=== PATIENT | female | born 1975 | race Caucasian/White ===

== ENCOUNTER 2019-08-08 18:22 | Emergency (ER) | payer SELFPAY ==
--- NOTE | 2019-08-08 18:34 | XR_ITS ---
WS: [id number] XR knee LT 3V* [id number] REASON FOR EXAM: injury FINDINGS: Degenerate changes along the medial meniscal space are seen now this is accentuated since A ugust 2015. The patella tibial space was normal. Patella femoral articulations normal. There is no fracture seen in the knee. XR/XR knee LT 3V* [id number] IMPRESSION: Early degenerate changes of the medial meniscal space.
[2019-08-08 18:54] VITALS: BP 135/95; PULSE 92; RESP 16; TEMP 37.2; O2SAT 99; BMI 25.6
--- NOTE | 2019-08-08 20:09 | ED_ITS ---
HPI - Extremity Problem General: Chief complaint: Extremity Injury, Lower Stated complaint: l knee pain Time Seen by Provider: 08/08/19 19:54 Source: patient Mode of arrival: ambulatory Limitations: no limitations History of Present Illness: HPI Narrative: Patient is a 43-year-old female who presents to ED today with complaints of left knee pain x yesterday. Patient states she has a history of rheumatoid arthritis and wonders if she could be having a flare. She also states she was cleaning her house and playing with her grandchild yesterday and may have accidentally twisted it. Patient reports previous tibial fracture years ago. MD Complaint: joint paint Onset (ago): day(s) Pain Consistency: constant Location: left Relieving factors: immobilization Exacerbating factors: range of motion, weight bearing and walking Associated symptoms: Reports no associated symptoms Review of Systems Musc: Reports: joint pain Neuro: Denies: numbness in extremities, weakness in extremities or changes in sensation PFSH ED PFSH: Social History Smoking and tobacco status: current every day smoker Physical Exam Const: COMMON NORMALS: no apparent distress, average body habitus, oriented x3, no limitations, healthy appearing, alert and well nourished Extremity: OTHER: pain throughout L knee; no obvious swelling noted; no effusion; no redness/warmth Neuro: COMMON NORMALS: oriented x3 SENSORIUM/ORIENTATION: Yes alert Course Vital Signs: Vital signs: Vital Signs Temperature 98.9 F 08/08/19 18:54 Pulse Rate 70 08/08/19 20:35 Respiratory Rate 16 08/08/19 18:54 Blood Pressure 135/95 08/08/19 18:54 Pulse Oximetry 99 08/08/19 18:54 MDM - Extremity (Nontraumatic) Imaging Data^: L knee XR: My impression: no acute fxs/dislocations; linear lucently through proximal tibia but this was present on previous and most likely represents her old fracture Discharge Plan Discharge Patient Disposition: Home, Self-Care Clinical Impression: Acute pain of left knee Condition: Stable Prescriptions: New diclofenac sodium 50 mg tablet,delayed release (DR/EC) 50 mg PO Q12H PRN (Reason: pain) Qty: 20 RF: 0 No Action Prilosec OTC 20 mg Tablet,Delayed Release (Dr/Ec) 20 mg PO DAILY RF: 0 Discharge Orders: Discharge Order (Routine); Ordered 08/08/19 Ordered By: Marcela Batista Referrals: Karina Burgess MD [Primary Care Provider] - Discharge Activity: Use walker/crutches as instructed Patient Instructions: RICE Therapy (ED) Activity Restrictions/Additional Instructions: Follow up with primary care in 1-2 weeks for continued pain. Discharge Date/Time: 08/08/19 20:44 Coding Level of Care Code ED Superintendent [employer] for Tone Da Silva
[2019-08-08] MEDS: ondansetron 2 mg/ML SDV 2 mL 4 MG IM (20:20)
[2019-08-08] MEDS: ketorolac 60 mg/2 mL INJ IM (20:21)
--- NOTE | 2019-08-08 20:24 | PC.NURSE ---
Wrapped left knee with [place] bandage.
[2019-08-08 20:35] VITALS: PULSE 70
== END 2019-08-08 20:44 | disposition home or self-care (01) ==
PROVIDERS: Emergency Provider Physician Assistant; PCP Family Medicine
DX: M25.562 Pain in left knee (principal); F17.210 Nicotine dependence, cigarettes, uncomplicated; M06.9 Rheumatoid arthritis, unspecified; M23.303 Other meniscus derangements, unspecified medial meniscus, right knee; W50.2XXA Accidental twist by another person, initial encounter; Y93.83 Activity, rough housing and horseplay; Y92.009 Unspecified place in unspecified non-institutional (private) residence as the place of occurrence of the external cause
CPT/HCPCS: 12345; 73562; 96372; 99281; 99283; E0114; J1885; J2405

== ENCOUNTER 2019-10-18 13:21 | Emergency (ER) | payer MEDICAID, SELFPAY ==
[2019-10-18] VITALS (9 sets, daily range): BP systolic 104–142; BP diastolic 64–93; PULSE 67–87; RESP 13–20; TEMP 36.6; O2SAT 97; BMI 25.6
--- NOTE | 2019-10-18 14:02 | ECG_ITS ---
Measurements Intervals Trilla Rate: 86 P: 61 [place]: 152 QRS: 52 QRSD: 85 T: 15 QT: 381 QTc: 456 SINUS RHYTHM NONSPECIFIC T-WAVE ABNORMALITY Compared to ECG 01/20/2019 20:52:31 No significant changes Electronically Signed On 10-19-2019 13:00:40 CDT by Thanh Zavala M.D. [email or web address]
[2019-10-18 14:36] LABS: Basophils % 0.8 %; Eosinophils # 0.2 10^3/uL (0.0-0.8); Hematocrit 42.6 % (37.0-47.0); Hemoglobin 14.1 g/dL (11.5-15.3); Lymphocytes # 1.9 10^3/uL (0.8-4.8); Mean Corpuscular HGB Conc 33.1 g/dL (30.0-36.0); Mean Corpuscular Hemoglobin 30.9 pg (28.0-34.0); Mean Corpuscular Volume 93.4 fL (81-99); Mean Platelet Volume 10.7 fL (7.4-10.4); Monocytes # 0.3 10^3/uL (0.2-0.9); Monocytes % 6.8 %; Neutrophils # 2.5 10^3/uL (1.8-7.7); Neutrophils % 50.2 %; Nucleated Red Blood Cells % 0 %; Platelet Count 134 10^3/cmm (130-400); Red Blood Count 4.56 10^6/uL (4.1-5.3); Red Cell Distribution Width 12.6 % (12.1-15.1)
--- NOTE | 2019-10-18 14:43 | ED_ITS ---
HPI - Chest Pain General: Chief Complaint: Chest Pain Stated Complaint: cp, jaw pain Time Seen by Provider: 10/18/19 14:39 Source: patient and RN notes reviewed History of Present Illness: HPI narrative: 44-year-old female with left-sided chest pain since last night that radiates to her left jaw states it woke her from sleep. It is been there most of the day nothing in particular makes it better or worse that she is noticed. She tells me that she has been diagnosed in the past with chest wall pain but she is worried because this seems to be lasting longer than she remembers the last episode. No known history of heart disease but she does have high cholesterol and smokes and has a family history of heart disease. She also has GERD and takes omeprazole daily. Denies any shortness of breath nausea vomiting or associated symptoms. Pain is 7-1/2 5 of 10 and feels like pressure or somebody putting a heavy weight on her chest Associated symptoms: Deny abdominal pain, dyspnea, fever(s), nausea or vomiting Review of Systems General: Reports: 10 or more systems reviewed and unremarkable except in HPI and below Const: Denies: fever(s) or chills Eyes: Denies: change in vision ENMT: Denies: throat pain Card: Reports: chest pain Resp: Denies: dyspnea GI: Denies: abdominal pain, nausea, vomiting or change in bowel habits : Denies: difficulty voiding Musc: Denies: muscle weakness Skin/Breast: Denies: rash Neuro: Denies: headache(s) Psych: Denies: hopelessness or suicidal ideation Endo: Denies: polyuria Cornelius/Lymph: Denies: easy bruising or easy bleeding All/Imm: Denies: urticaria PFSH ED PFSH: Social History Smoking and tobacco status: current every day smoker Physical Exam Const: COMMON NORMALS: no acute distress, patient oriented x3, alert and well nourished HENMT: COMMON NORMALS: normocephalic and Normal external nose present HEAD & SCALP: normocephalic NOSE: Normal external nose present MOUTH: no trismus Eye: COMMON NORMALS: EOMs intact bilaterally and conjunctivae normal CONJUNCTIVA: Yes conjunctivae normal Neck/C-Spine: COMMON NORMALS: full ROM, no lymphadenopathy and supple CERVICAL SPINE: Yes cervical ROM normal Lymph: LYMPHATIC: no lymphadenopathy noted Chest: COMMONS NORMALS: normal inspection of the chest OTHER: Chest pain reproducible with palpation Resp: COMMON NORMALS: normal respiratory effort, No retractions, No use of accessory muscles and clear to auscultation bilaterally EFFORT & INSPECTION: Yes able to speak in complete sentences AUSCULTATION: clear to auscultation bilaterally Cardio: COMMON NORMALS: regular rate and regular rhythm RATE: regular rate RHYTHM: regular rhythm GI: COMMON NORMALS: Normal to inspection, nondistended, normoactive bowel sounds present, Soft to palpation, non-tender and no masses INSPECTION: Yes normal to inspection AUSCULTATION: Yes normoactive bowel sounds PALPATION: Yes Soft to palpation, No Guarding due to palpation present (GI) and No Rigid due to palpation Back/Pelvis: OTHER: Normal range of motion Extremity: GENERAL: Yes normal exam except as noted Neuro: COMMON NORMALS: patient oriented x3 and CN's II-XII intact bilaterally SENSORIUM/ORIENTATION: Yes alert SPEECH: speech normal Psych: COMMON NORMALS: mental status grossly normal Skin: COMMON NORMALS: no rashes or lesions noted GENERAL SKIN EXAM: no rashes or lesions noted Course Vital Signs: Vital signs: Vital Signs Temperature 97.9 F 10/18/19 13:41 Pulse Rate 71 10/18/19 17:30 Respiratory Rate 13 10/18/19 17:30 Blood Pressure 116/65 10/18/19 17:30 Pulse Oximetry 97 10/18/19 13:41 MDM - Chest Pain MDM Narrative: Medical decision making narrative: Chest pain is reproducible on palpation. First troponin was 6-second 2-hour troponin was also 6. Explained to patient that this is likely chest wall pain we talked about doing things that could help with decreasing inflammation she is taking tumor Gummies and exploring dietary options since she also has rheumatoid arthritis to help with this. She was given a dose of Toradol here IV but it did not help we will give her a dose of Vicodin and a prescription for 3. I explained that this is not the long-term solution and she will need to follow-up and explore other options that are not related to opioids Lab Data: Attestation: I reviewed the patient's lab results. Labs: Lab Results 10/18/19 10/18/19 10/18/19 Range/Units 14:26 14:26 14:26 WBC 5.0 (4.0-10.0) 10^3/ uL RBC 4.56 (4.1-5.3) 10^6/u L Hgb 14.1 (11.5-15.3) g/dL Hct 42.6 (37.0-47.0) % MCV 93.4 (81-99) fL MCH 30.9 (28.0-34.0) pg MCHC 33.1 (30.0-36.0) g/dL RDW 12.6 (12.1-15.1) % Plt Count 134 (130-400) 10^3/c mm MPV 10.7 H (7.4-10.4) fL Neut % (Auto) 50.2 % Lymph % (Auto) 38.0 % Wagoner % (Auto) 6.8 % Eos % (Auto) 4.0 % Baso % (Auto) 0.8 % Neut # (Auto) 2.5 (1.8-7.7) 10^3/u L Lymph # (Auto) 1.9 (0.8-4.8) 10^3/u L Wagoner # (Auto) 0.3 (0.2-0.9) 10^3/u L Eos # (Auto) 0.2 (0.0-0.8) 10^3/u L Baso # (Auto) 0.0 (0.0-0.1) 10^3/u L Nucleated RBC % (a uto) 0 % Nucleated RBCs # 0.0 /100WBC Sodium 135 L (136-145) mmol/L Potassium 4.6 (3.5-5.1) mmol/L Chloride 98 (98-107) mmol/L Carbon Dioxide 29 (22-29) mmol/L Anion Gap 12.6 (5-19) BUN 8 (6-20) mg/dL Creatinine 0.6 (0.5-0.9) mg/dL GFR Calculation 107.6 (90-130) mL/min Glucose 99 (65-115) mg/dL Calculated Osmolal ity 276 L (285-295) mOsm/k g Calcium 9.0 (8.5-10.5) mg/dL Total Bilirubin 0.3 (0.15-1.2) mg/dL AST 54 H (0-32) U/L ALT 47 H (0-33) U/L Alkaline Phosphata se 81 (35-105) IU/L Troponin T Baselin e 6 (0-10) ng/mL Troponin T 120 Min [place] (0-10) ng/mL Total Protein 7.0 (6.6-8.7) g/dL Albumin 4.2 (3.5-5.2) g/dL Globulin 2.8 (1.3-4.6) g/dL 10/18/19 Range/Units 17:08 WBC (4.0-10.0) 10^3/ uL RBC (4.1-5.3) 10^6/u L Hgb (11.5-15.3) g/dL Hct (37.0-47.0) % MCV (81-99) fL MCH (28.0-34.0) pg MCHC (30.0-36.0) g/dL RDW (12.1-15.1) % Plt Count (130-400) 10^3/c mm MPV (7.4-10.4) fL Neut % (Auto) % Lymph % (Auto) % Wagoner % (Auto) % Eos % (Auto) % Baso % (Auto) % Neut # (Auto) (1.8-7.7) 10^3/u L Lymph # (Auto) (0.8-4.8) 10^3/u L Wagoner # (Auto) (0.2-0.9) 10^3/u L Eos # (Auto) (0.0-0.8) 10^3/u L Baso # (Auto) (0.0-0.1) 10^3/u L Nucleated RBC % (a uto) % Nucleated RBCs # /100WBC Sodium (136-145) mmol/L Potassium (3.5-5.1) mmol/L Chloride (98-107) mmol/L Carbon Dioxide (22-29) mmol/L Anion Gap (5-19) BUN (6-20) mg/dL Creatinine (0.5-0.9) mg/dL GFR Calculation (90-130) mL/min Glucose (65-115) mg/dL Calculated Osmolal ity (285-295) mOsm/k g Calcium (8.5-10.5) mg/dL Total Bilirubin (0.15-1.2) mg/dL AST (0-32) U/L ALT (0-33) U/L Alkaline Phosphata se (35-105) IU/L Troponin T Baselin e (0-10) ng/mL Troponin T 120 Min [place] 6.00 (0-10) ng/mL Total Protein (6.6-8.7) g/dL Albumin (3.5-5.2) g/dL Globulin (1.3-4.6) g/dL Imaging Data^: CXR: Radiologist's impression: No acute disease EKG Data^: EKG 1: Attestation: I personally reviewed and interpreted this EKG as follows: EKG interpretation date: 10/18/19 EKG interpretation time: 14:39 Prior EKG tracings: available for review Interpretation: Normal sinus rhythm rate 86 poor R wave progression nonspecific ST changes no acute ST elevation. Nonspecific ST changes are unchanged from 01/20/2019 EKG that I reviewed Discharge Plan Discharge Patient Disposition: Home, Self-Care Clinical Impression: Chest pain Qualifiers: Chest pain type: unspecified Qualified Code(s): R07.9 - Chest pain, unspecified Condition: Stable Prescriptions: New Sadler 7.5-325 mg tablet 1 tab PO TID Qty: 3 RF: 0 No Action omeprazole magnesium [Prilosec OTC] 20 mg Tablet,Delayed Release (Dr/Ec) 20 mg PO DAILY RF: 0 Multiple Vitamins Tablet 1 tab PO DAILY RF: 0 Tylenol Extra Strength 500 mg Tablet 2,000 mg PO PRN RF: 0 Suboxone 1 tab PO PRN RF: 0 Discharge Diet: Usual diet Discharge Activity: Resume usual activity Patient Instructions: Chest Pain - Chest Wall, Chest Pain (ED) Activity Restrictions/Additional Instructions: Tylenol and/or Motrin for pain as directed [id number]. Return to the ER if worse. You need to follow-up with your primary care doctor. Coding Level of Care Code ED Buildings Painter for Chg Fwd Exam Comprehensive
--- NOTE | 2019-10-18 14:44 | XR_ITS ---
WS: [id number] PORTABLE CHEST HISTORY: cp COMPARISON: 01/20/2019 Lungs are clear and well expanded. No pleural effusion or pneumothorax. Cardiac size: Normal. Mediastinum/Aorta: Normal mediastinum. No osseous abnormality seen. XR/XR chest 1V portable [id number] IMPRESSION: Unremarkable portable chest.
[2019-10-18 15:03] LABS: Alanine Aminotransferase 47 U/L (0-33); Albumin Level 4.2 g/dL (3.5-5.2); Alkaline Phosphatase 81 IU/L (35-105); Anion Gap 12.6 (5-19); Aspartate Amino Transferase 54 U/L (0-32); Blood Urea Nitrogen 8 mg/dL (6-20); Carbon Dioxide 29 mmol/L (22-29); Chloride 98 mmol/L (98-107); Globulin 2.8 g/dL (1.3-4.6); Glomerular Filtration Rate 107.6 mL/min (90-130); Glucose 99 mg/dL (65-115); Osmolality Calculated 276 mOsm/kg (285-295); Potassium 4.6 mmol/L (3.5-5.1); Sodium 135 mmol/L (136-145); Total Bilirubin 0.3 mg/dL (0.15-1.2)
[2019-10-18 15:04] LABS: Troponin(5th) Baseline 6 ng/mL (0-10)
[2019-10-18] MEDS: aspirin 81 mg Chew Tablet 324 MG PO (15:25)
[2019-10-18] MEDS: famotidine 20 mg/2 mL INJ IVP (15:26)
[2019-10-18] MEDS: ketorolac 30 mg/mL INJ 15 MG IVP (16:15)
[2019-10-18 17:38] LABS: Troponin 5 2HR Delta 0 ABS# (0-10)
[2019-10-18] MEDS: LORazepam 1 mg Tablet 0.5 MG PO (17:42)
[2019-10-18] MEDS: HYDROcodone-acetaminophen 7.5-325 mg Tablet 1 TAB PO (17:52)
== END 2019-10-18 18:04 | disposition home or self-care (01) ==
PROVIDERS: Emergency Provider Emergency Medicine
DX: R07.9 Chest pain, unspecified (principal); F17.210 Nicotine dependence, cigarettes, uncomplicated
CPT/HCPCS: 12345; 36415; 71045; 80053; 84484; 85025; 93005; 96374; 96375; 99283; 99284; J1885; J3490

== ENCOUNTER → 2020-03-06 11:55 | Outpatient (BNVA) | payer MEDICAID, SELFPAY | PROVIDERS: Visit Provider Internal Medicine | DX: E11.9 Type 2 diabetes mellitus without complications (principal); K22.70 Barrett's esophagus without dysplasia; R76.8 Other specified abnormal immunological findings in serum; B18.2 Chronic viral hepatitis C; Z86.19 Personal history of other infectious and parasitic diseases | CPT/HCPCS: 80053; 85025; 87522 ==

== ENCOUNTER → 2020-03-10 15:36 | Outpatient (BNVA) | payer MEDICAID, SELFPAY | PROVIDERS: Visit Provider Internal Medicine | DX: Z11.59 Encounter for screening for other viral diseases (principal) | CPT/HCPCS: 87635 ==

== ENCOUNTER 2020-03-14 09:20 | Day surgery (SDC) | payer MEDICAID, SELFPAY ==
[2020-03-11 12:09] VITALS: BMI 28.3
--- NOTE | 2020-03-14 10:01 | P.ANESASSM_ITS ---
Pre-Anesthetic Assessment Pre-Anesthetic Assessment: Height/Weight: Height 1.57 m Weight 70.307 kg Preop Diagnosis: BE Proposed Procedure: Operation Date: 03/14/20 10:30 Proposed Procedures p EGD 47406 K22.70(Not Applicable) - Rohan Gates MD Was Beta Jamari taken within 24 hours: N/A Last intake: Intake Last Liquid Date 03/13/20 Last Liquid Time 23:30 Last Solid Date 03/13/20 Last Solid Time 23:30 Social: Social History: Alcohol and Tobacco Exam: Pre-Anes Outpt Exam: alert, oriented x 3, clear to auscultation bilaterally and regular rate & rhythm Airway: Submandibular: WNL Cervical ROM: WNL MP: 2 Dentition: Full Pulmonary: Comments: Chest Pain of undetermined etiology CV/HEM: CV/HEM: None reported : : None reported Hepatic: Hepatic: None reported GI: GI: GERD Metabolic: Metabolic: None reported Musc/skel: Musc/skel: None reported Neuropsych: Neuropsych: Anxiety and Depression Comments: Poly Substance A buse Anesthetic Plan: ASA status: 3 Anesthesia: MAC PFSH Anesthesia PFSH: Medical History (Updated 03/06/20 @ 11:44 by Rohan Gates MD) Atypical chest pain Barretts esophagus Benign essential hypertension with target blood pressure below 140/90 Dyslipidemia (high LDL; low HDL) IV drug user Narcotic addiction Rhabdomyolysis Rheumatoid arthritis Surgical History Hx of appendectomy Hx of section Hx of cholecystectomy Hx of neck surgery Social History (Updated 03/06/20 @ 11:01 by DERRICK Cottrell) Smoking and tobacco status: current every day smoker Alcohol intake: current Alcohol intake frequency: holidays/special occasions only Alcohol type: beer Adopted: No Marital status: service: No History of recent travel: No Female Reproductive History: Date of last menstrual period: 02/19/20 Data Anesthesia Cardiac Studies: No Data to Display
[2020-03-14 10:02] VITALS: BP 155/90; PULSE 76; RESP 18; TEMP 36.2; O2SAT 97
[2020-03-14] MEDS: sodium chloride 0.9% 1,000 ML 30 ML IV (10:02)
[2020-03-14 10:10] LABS: OR HCG Qualitative Urine Negative (Negative)
--- NOTE | 2020-03-14 11:08 | W.PM.OPSUD ---
Surgery/Procedure H&P Update DATE OF PROCEDURE: March 14, 2020 DATE H&P PERFORMED: 03/06/20 PREOP DIAGNOSIS: BE PLANNED PROCEDURE: Operation Date: 03/14/20 10:30 Proposed Procedures p EGD 89152 K22.70(Not Applicable) - Rohan Gates MD
[2020-03-14 11:27] VITALS: BP 147/97; PULSE 62; RESP 18; TEMP 36.1; O2SAT 94
--- NOTE | 2020-03-14 11:32 | ANE.PACU2 ---
Inpatient post-anesthesia follow up: Airway intact: Yes Vital signs: Temperature 97.2 F Pulse Rate 76 Respiratory Rate 18 Blood Pressure 155/90 Pulse Oximetry 97 Oxygen Delivery Me thod Room Air Oxygen Flow Rate Fraction of Inspir ed Oxygen Hydration adequate: Yes Nausea and vomiting: No Pain level: 1
[2020-03-14 11:43] VITALS: BP 136/78; PULSE 75; RESP 18; O2SAT 98
== END 2020-03-14 11:55 | disposition home or self-care (01) ==
PROVIDERS: Anesthesiology; Visit Provider Internal Medicine
PROC: 0DJ08ZZ Inspection of Upper Intestinal Tract, Via Natural or Artificial Opening Endoscopic (ICD-10-PCS; CPT 43235; principal; 2020-03-14 10:30)
DX: K22.70 Barrett's esophagus without dysplasia (principal); Z86.19 Personal history of other infectious and parasitic diseases; E78.5 Hyperlipidemia, unspecified; M06.9 Rheumatoid arthritis, unspecified; F17.210 Nicotine dependence, cigarettes, uncomplicated; I10 Essential (primary) hypertension; K21.9 Gastro-esophageal reflux disease without esophagitis
CPT/HCPCS: 12345; 43239; 84703; 88305; J2704; J7030

== ENCOUNTER → 2020-04-15 14:38 | Outpatient (BNVA) | payer MEDICAID, SELFPAY | PROVIDERS: Visit Provider Psychiatry & Neurology Psychiatry | DX: F41.1 Generalized anxiety disorder (principal); F33.2 Major depressive disorder, recurrent severe without psychotic features; F43.12 Post-traumatic stress disorder, chronic; F17.210 Nicotine dependence, cigarettes, uncomplicated; F11.20 Opioid dependence, uncomplicated | CPT/HCPCS: 99204 ==

== ENCOUNTER 2020-09-01 17:16 | Outpatient (CLI) | payer MEDICAID, SELFPAY ==
--- NOTE | 2020-09-01 17:26 | MR_ITS ---
WS: [id number] MRI RIGHT KNEE HISTORY: PAIN IN RIGHT KNEE COMPARISON: None available. Anterior cruciate ligament: Intact. Posterior cruciate ligament: Intact. Medial collateral ligament: Intact with slight displacement due to partially extruded meniscus. No te ar. Posterior lateral corner structures: Intact. Medial menisci: Increased signal towards the meniscal root in the peripheral third of the meniscus. C onsistent with a minimally complex tear. Anterior horn is normal. Lateral meniscus: Intact. Normal signal, size and shape. Extensor mechanism: Distal quadriceps tendon and patellar tendons are intact. Fluid and soft tissue: Moderate to large suprapatellar joint effusion. No Landeros's cyst. Osseous and articular structures: Patellofemoral compartment: Normal. Medial compartment: Mild narrowing of the medial compartment. There is moderate fissuring and superfi cial cartilage in the medial and lateral compartments. Slightly greater defects in the cartilage towa rds the intercondylar notch. Greatest defects involving the femoral condyle. Subchondral cyst in the posterior tibial plateau near the attachment of the PCL measures 10 mm. Small amount of edema within the medial tibial plateau and additional area of osteonecrosis in the more anterior tibial plateau. Lateral compartment: Mild fissuring of the cartilage. MR/MR knee RT wo con* [id number] IMPRESSION: 1. Moderate internal derangement involving the medial compartment. There is femi int space narrowing with moderate chondromalacia greatest involving the femoral condyle towards the intercondylar notch. 2. Subchondral cystic changes in the tibial plateau of the medial compartment with an additional area of marrow edema and osteonecrosis involving the LEFT an terior medial tibial plateau. 3. Complex tear involving the medial meniscal root, peripheral third of the me niscus. 4. Mild lateral compartment osteoarthritis. 5. Moderate-sized suprapatellar joint effusion.
== END 2020-09-01 17:17 | disposition home or self-care (01) ==
LOC: RADSHAW 17:22
PROVIDERS: Visit Provider Nurse Practitioner Family
DX: M23.91 Unspecified internal derangement of right knee (principal); S83.231A Complex tear of medial meniscus, current injury, right knee, initial encounter; M17.11 Unilateral primary osteoarthritis, right knee; M25.461 Effusion, right knee; X58.XXXA Exposure to other specified factors, initial encounter
CPT/HCPCS: 73721

== ENCOUNTER → 2020-09-10 10:30 | Outpatient (BNVA) | payer MEDICAID, SELFPAY | PROVIDERS: PCP Nurse Practitioner Family; Referring Provider Nurse Practitioner Family; Visit Provider Orthopaedic Surgery | DX: M25.561 Pain in right knee (principal) | CPT/HCPCS: 73560; 73565 ==

== ENCOUNTER → 2020-09-19 15:06 | Outpatient (BNVA) | payer MEDICAID, SELFPAY | PROVIDERS: PCP Nurse Practitioner Family; Visit Provider Orthopaedic Surgery | DX: Z01.812 Encounter for preprocedural laboratory examination (principal); Z20.822 Contact with and (suspected) exposure to COVID-19 | CPT/HCPCS: 87635 ==

== ENCOUNTER 2020-09-25 11:49 | Day surgery (SDC) | payer MEDICAID, SELFPAY ==
[2020-09-24 17:00] VITALS: BMI 28.3
[2020-09-25] VITALS (8 sets, daily range): BP systolic 131–168; BP diastolic 87–108; PULSE 58–71; RESP 12–21; TEMP 36.1–37.1; O2SAT 95–100
--- NOTE | 2020-09-25 13:07 | ANES.PREANE2 ---
Pre-Anesthetic Assessment Pre-Anesthetic Assessment: Height/Weight: Height 1.57 m Weight 70.307 kg Temp Pulse Resp BP Pulse Ox 98.7 F 71 18 144/92 96 09/25/20 12:11 09/25/20 12:11 09/25/20 12:11 09/25/20 12:11 09/25/20 12:11 Preop Diagnosis: Knee Medial meniscal tear, osteoarthritis Proposed Procedure: Operation Date: 09/25/20 12:15 Proposed Procedures p Knee Arthroscopy with Medial Mensicectomy 92577 M23.303(Right) - Eliseo Tran MD s Debridement Lower Extremity(Right) - Eliseo Tran MD Was Beta Jamari taken within 24 hours: N/A Was Clonidine taken within 24 hours: N/A Last intake: Intake Last Liquid Date 09/24/20 Last Liquid Time 06:00 Last Solid Date 09/23/20 Last Solid Time 23:10 Social: Social History: Tobacco and No alcohol Exam: Pre-Anes Outpt Exam: alert, oriented x 3 and regular rate & rhythm Airway: Submandibular: WNL Cervical ROM: WNL MP: 2 Dentition: False Pulmonary: Pulmonary: COPD GI: GI: GERD Neuropsych: Neuropsych: Anxiety and Depression Anesthetic Plan: ASA status: 3 Anesthesia: General Risk of > 500 ml blood loss (7ml/kg in children): No PFSH Anesthesia PFSH: Medical History Atypical chest pain Barretts esophagus Benign essential hypertension with target blood pressure below 140/90 Dyslipidemia (high LDL; low HDL) IV drug user Narcotic addiction Rhabdomyolysis Rheumatoid arthritis Surgical History Hx of appendectomy Hx of section Hx of cholecystectomy Hx of neck surgery Social History Smoking and tobacco status: current every day smoker cigarettes Packs smoked per day: 0.5 Years cigarettes smoked: 27 Quit status (tobacco): has tried quititng Number of times tried to quit tobacco: 1 Second hand smoke exposure: Yes Alcohol intake: current Alcohol intake frequency: holidays/special occasions only Alcohol type: beer Adopted: No Marital status: service: No History of recent travel: No Current gender identity: Female Female Reproductive History: Date of last menstrual period: 02/19/20 Data Anesthesia Cardiac Studies: No Data to Display
[2020-09-25] MEDS: midazolam 1 mg/mL INJ 2 mL 2 MG IVP (13:14)
[2020-09-25] MEDS: sodium chloride 0.9% 1,000 ML 30 ML IV (13:18)
[2020-09-25 14:35] LABS: OR HCG Qualitative Urine Negative (Negative)
--- NOTE | 2020-09-25 14:35 | W.PM.OPSUD ---
Surgery/Procedure H&P Update DATE OF PROCEDURE: September 25, 2020 DATE H&P PERFORMED: 09/09/20 H&P UPDATE INFORMATION: I have reviewed H&P completed within last 30 days, I have examined patient prior to procedure and No changes to prior documentation PREOP DIAGNOSIS: Knee Medial meniscal tear, osteoarthritis PLANNED PROCEDURE: Operation Date: 09/25/20 12:15 Proposed Procedures p Knee Arthroscopy with Medial Mensicectomy 19160 M23.303(Right) - Eliseo Tran MD s Debridement Lower Extremity(Right) - Eliseo Tran MD
[2020-09-25] MEDS: morphine 4 mg/mL SDV 1 mL 8 MG (15:20)
--- NOTE | 2020-09-25 15:35 | P.OP_ITS ---
Operative Report Date of procedure: September 25, 2020 Pre-op Diagnosis: Knee Medial meniscal tear, osteoarthritis Post-op diagnosis: same Post-op Diagnosis: Degenerative tear right medial meniscus Chondromalacia medial femoral condyle and trochlea Post-op Findings: As above Procedure Done: Arthroscopic partial right medial meniscectomy Chondroplasty medial femoral condyle and trochlea Pathology: none sent Surgeon: Eliseo Tran Anesthesia: General Estimated blood loss (mL): 10 Findings: The patient had complex degenerative tearing in the central 50% of her medial meniscus. She had thinning of the cartilage with fraying over the medial femoral condyle involving 50% of the thickness of the cartilage. She had central trochlear wear involving approximately 75% of her central trochlear cartilage. Her lateral compartment and patella seemed healthy. Her lateral meniscus was healthy. No pathology was seen in the central stabilizing ligaments Condition: stable Disposition: PACU Procedure: The patient was taken to the operating room given 2 g of Ancef. She was prepped and draped in the supine position. The knee was infiltrated with 30 cc of 0.5% Marcaine and 8 mg of morphine. A timeout was performed. The knee was entered through standard inferior medial and inferolateral portals. The karen gnostic portion of arthroscopy was performed. Initial attention was paid to the medial meniscus. Utilizing a basket this complex tearing the central 50% of the medial meniscus was debrided back. The rim was then stabilized with the werewolf probe leaving 50% of the remaining meniscus healthy and of reasonable quality. Thinning and fraying was identified over the medial femoral condyle. This was debrided back with incisor shaver and [employer] Nephew Werewolf probe to a stable base of proximally 50% of the medial femoral cartilage. The lateral compartment was inspected and found to be pristine. Final attention was focused on the patellofemoral joint. There is some generalized softening of the patella but no unstable flaps or fissures. Centrally about the trochlea unstable flaps were debrided back with the werewolf shaver. No exposed subchondral bone was identified but substantial thickness of the cartilage loss noted. The knee was irrigated with saline. Portals were closed with 3-0 Prolene. Sterile dressings were applied. The patient was extubated taken recovery in stable condition.
[2020-09-25] MEDS: fentaNYL 50 mcg/mL INJ 2mL IVP ×2 (15:40→15:45)
[2020-09-25] MEDS: HYDROmorphone 1 mg/mL INJ 1 mL 0.5 MG IVP ×2 (15:47→15:55)
[2020-09-25] MEDS: oxyCODONE 5 mg IR Tab/Cap PO (16:30)
--- NOTE | 2020-09-25 17:09 | ANE.PACU2 ---
Inpatient post-anesthesia follow up: Airway intact: Yes Vital signs: Temperature 97.7 F Pulse Rate 67 Respiratory Rate 18 Blood Pressure 131/89 Pulse Oximetry 95 Oxygen Delivery Me thod Room Air Oxygen Flow Rate 8 Fraction of Inspir ed Oxygen Hydration adequate: Yes Nausea and vomiting: No Pain level: 3 Mental status: Baseline
== END 2020-09-25 16:55 | disposition home or self-care (01) ==
PROVIDERS: Anesthesiology; PCP Nurse Practitioner Family; Visit Provider Orthopaedic Surgery
PROC: (CPT 29870; principal; 2020-09-25 12:05)
PROC: (CPT 29881; 2020-09-25 12:05)
DX: S83.241A Other tear of medial meniscus, current injury, right knee, initial encounter (principal); X58.XXXA Exposure to other specified factors, initial encounter; J44.9 Chronic obstructive pulmonary disease, unspecified; K21.9 Gastro-esophageal reflux disease without esophagitis; F41.9 Anxiety disorder, unspecified; F32.9 Major depressive disorder, single episode, unspecified; E78.5 Hyperlipidemia, unspecified; M06.9 Rheumatoid arthritis, unspecified; F17.210 Nicotine dependence, cigarettes, uncomplicated; Z79.82 Long term (current) use of aspirin
CPT/HCPCS: 29881; 81025; 84703; 96374; J0690; J1170; J2250; J2270; J2405; J2704; J3010; J3490; J7030

== ENCOUNTER → 2021-01-26 11:08 | Outpatient (BNVA) | payer MEDICAID, SELFPAY | PROVIDERS: Visit Provider Psychiatry & Neurology Psychiatry | DX: F43.12 Post-traumatic stress disorder, chronic (principal); F33.2 Major depressive disorder, recurrent severe without psychotic features; F41.1 Generalized anxiety disorder; F15.21 Other stimulant dependence, in remission; F11.20 Opioid dependence, uncomplicated; F17.200 Nicotine dependence, unspecified, uncomplicated | CPT/HCPCS: 99214 ==

== ENCOUNTER → 2021-10-09 09:49 | Outpatient (BNVA) | payer MEDICAID, SELFPAY | PROVIDERS: Visit Provider Orthopaedic Surgery | DX: M17.11 Unilateral primary osteoarthritis, right knee (principal); F17.210 Nicotine dependence, cigarettes, uncomplicated | CPT/HCPCS: 73560; 73565; 99213; 99214 ==

== ENCOUNTER 2021-11-16 10:03 | Observation (INO) | payer MEDICAID, SELFPAY ==
[2021-11-09 10:46] VITALS: BMI 27.4
--- NOTE | 2021-11-09 11:08 | P.ANESASSM_ITS ---
Pre-Anesthetic Assessment Height/Weight: Height 1.57 m Weight 68.039 kg Preop Diagnosis: Knee Medial meniscal tear, osteoarthritis Operation Date: 11/16/21 10:00 Proposed Procedures p RightTotal Knee Arthroplasty 77366/M17.11(Right) - Eliseo Tran MD Familial anesthetic complications: None Social Tobacco and No alcohol Airway Mallampati: Class III Dentition: false and other Pulmonary Chronic Obstructive Pulmonary Disease (inhalers) CV/HEM Stable Angina (atypical - anxiety) and Hypertension None reported Hepatic Hepatitis (C - in remission) GI Gastroesophageal Reflux Disease Metabolic Hyperlipidemia Musc/skel Lower Back Pain and Osteoarthritis/DJD Neuropsych Seizure (years ago) Anesthetic Plan ASA status: 3 Anesthesia: Regional (specify below) (spinal + adductor) Risk of > 500 ml blood loss (7ml/kg in children): No Medications/Allergies Home Medications Medication Instructions Recorded Confirmed Last Taken Type multivitamin (Multiple Vitamins) 1 tab PO DAILY 10/18/19 11/09/21 09/24/20 History nitroglycerin 0.4 mg sublingual 0.4 mg SUBLINGUAL Q5M PRN #30 tab 03/11/20 11/09/21 Unknown Rx tablet (Nitrostat) famotidine 20 mg tablet 20 mg PO BID 04/15/20 11/09/21 09/24/20 History omeprazole magnesium 20 mg 40 mg PO DAILY tab 04/15/20 11/09/21 09/24/20 History tablet,delayed release (Prilosec OTC) naproxen 500 mg tablet (Naprosyn) 500 mg PO BID #60 tab 10/21/20 11/09/21 Unknown Rx [facility] Knee Brace #1 ea 11/19/20 10/09/21 Unknown Rx aspirin 81 mg tablet,delayed 81 mg PO DAILY 04/17/21 11/09/21 Unknown History release (Adult Aspirin Regimen) ergocalciferol (vitamin D2) 1,250 1,250 mcg PO DAILY 04/17/21 11/09/21 Unknown History mcg (50,000 unit) capsule ipratropium 20 mcg-albuterol 100 1 puff INHALATION QID 04/17/21 11/09/21 Unknown History mcg/actuation mist for inhalation (Combivent Respimat) naloxone 4 mg/actuation nasal 4 mg INTRANASAL Q2M PRN 04/17/21 11/09/21 Unknown History spray (Narcan) buprenorphine 8 mg-naloxone 2 mg 1 tab SUBLINGUAL DAILY tab 10/09/21 11/09/21 Unknown History sublingual tablet clonazepam 1 mg tablet 0.5 mg PO BID tab 10/09/21 11/09/21 Unknown History gabapentin 100 mg capsule 100 mg PO TID 10/09/21 11/09/21 Unknown History fluoxetine 60 mg tablet 60 mg PO DAILY 11/09/21 11/09/21 Unknown History Allergies Allergy/AdvReac Type Severity Reaction Status Date / Time tramadol Allergy Severe ADR-Seizure Verified 10/09/21 09:52 metoclopramide [From Reglan] Allergy Intermediate ADR-Irritab Verified 10/09/21 09:52 le codeine Allergy Nausea Verified 10/09/21 09:52 propoxyphene [From Darvon] Allergy unknown Verified 10/09/21 09:52 [facility] Anesthesia Medical History Atypical chest pain Barretts esophagus Benign essential hypertension with target blood pressure below 140/90 Dyslipidemia (high LDL; low HDL) IV drug user Narcotic addiction Psychiatric care Rhabdomyolysis Rheumatoid arthritis Surgical History Hx of appendectomy Hx of section Hx of cholecystectomy Hx of neck surgery Social History Smoking and tobacco status: current every day smoker cigarettes Packs smoked per day: 0.5 Years cigarettes smoked: 27 Quit status (tobacco): has tried quititng Number of times tried to quit tobacco: 1 Second hand smoke exposure: Yes Alcohol intake: current Alcohol intake frequency: holidays/special occasions only Alcohol type: beer Adopted: No Marital status: service: No History of recent travel: No Current gender identity: Female Female Reproductive History Date of last menstrual period: 02/19/20 Data Anesthesia Cardiac Studies: No Data to Display
[2021-11-16] VITALS (24 sets, daily range): BP systolic 94–163; BP diastolic 59–85; PULSE 59–86; RESP 15–22; TEMP 36.3–37.2; O2SAT 94–99
[2021-11-16] MEDS: gabapentin 300 mg Capsule PO ×2 (06:33→17:39)
[2021-11-16] MEDS: CELEcoxib 200 mg Capsule 400 MG PO (06:33)
[2021-11-16] MEDS: acetaminophen 500 mg Tablet 1000 MG PO ×3 (06:34→23:19)
[2021-11-16] MEDS: oxyCODONE 20 mg ER (12 HR) Tablet PO (06:34)
[2021-11-16] MEDS: sodium chloride 0.9% 1,000 ML 30 ML IV (06:52)
--- NOTE | 2021-11-16 06:52 | P.ANESUD_ITS ---
Pre-Anesthetic Update Pre-Anesthetic Assessment: Date of Surgery/Procedure: 11/16/21 Preop Melissa gnosis: OsteoarthritisRight knee Proposed Procedure: Operation Date: 11/16/21 07:00 Proposed Procedures p RightTotal Knee Arthroplasty 67912/M17.11(Right) - Eliseo Tran MD Any changes to Pre-Anesthetic Assessment?: No Last Intake: Intake Last Liquid Date 11/15/21 Last Liquid Time 23:45 Last Solid Date 11/15/21 Last Solid Time 09:00 Vitals: Temperature 97.3 F L 11/16/21 06:08 Temperature Source Temporal Artery S can 11/16/21 06:08 Pulse Rate 72 11/16/21 06:08 Respiratory Rate 18 11/16/21 06:34 Respiratory Effort Non-Labored 11/16/21 06:34 Respiratory Depth Normal 11/16/21 06:34 Respiratory Patter n 11/16/21 06:34 Blood Pressure 163/81 11/16/21 06:08 Blood Pressure Juhi n 108 11/16/21 06:08 Pulse Oximetry 99 11/16/21 06:08 Oxygen Delivery Me thod 11/16/21 06:08 Exam: Pre-Anes Outpt Exam: alert, oriented x 3, clear to auscultation bilaterally and regular rate & rhythm Cardiac Studies: No Data to Display
--- NOTE | 2021-11-16 06:55 | P.HP_ITS ---
Same Day Surgery H&P Indication for Procedure/HPI DATE OF PROCEDURE: November 16, 2021 CHIEF COMPLAINT/INDICATIONFOR SURGICAL PROCEDURE: Osteoarthritis right knee here for right total knee arthroplasty PREOP DIAGNOSIS: OsteoarthritisRight knee PLANNED PROCEDURE: Operation Date: 11/16/21 07:00 Proposed Procedures p RightTotal Knee Arthroplasty 95129/M17.11(Right) - Eliseo Tran MD 46-year-old female with degenerative changes right knee diagnosed arthroscopically at the time of a medial meniscectomy in September 2020. Patient h as had progressive pain uncontrolled with medications and is here for elective right total knee arthroplasty Medications/Allergies* Home Medications Medication Instructions Recorded Confirmed Type multivitamin (Multiple Vitamins) 1 tab PO DAILY 10/18/19 11/16/21 History famotidine 20 mg tablet 20 mg PO BID 04/15/20 11/16/21 History omeprazole magnesium 20 mg 40 mg PO DAILY tab 04/15/20 11/16/21 History tablet,delayed release (Prilosec OTC) aspirin 81 mg tablet,delayed 81 mg PO DAILY 04/17/21 11/16/21 History release (Adult Aspirin Regimen) ergocalciferol (vitamin D2) 1,250 1,250 mcg PO DAILY 04/17/21 11/16/21 History mcg (50,000 unit) capsule ipratropium 20 mcg-albuterol 100 1 puff INHALATION QID 04/17/21 11/16/21 History mcg/actuation mist for inhalation (Combivent Respimat) naloxone 4 mg/actuation nasal 4 mg INTRANASAL Q2M PRN 04/17/21 11/16/21 History spray (Narcan) buprenorphine 8 mg-naloxone 2 mg 1 tab SUBLINGUAL DAILY tab 10/09/21 11/16/21 History sublingual tablet clonazepam 1 mg tablet 0.5 mg PO BID tab 10/09/21 11/16/21 History gabapentin 100 mg capsule 100 mg PO TID 10/09/21 11/16/21 History fluoxetine 60 mg tablet 60 mg PO DAILY 11/09/21 11/16/21 History Allergies/Adverse Reactions Allergy/AdvReac Type Severity Reaction Status Date / Time tramadol Allergy Severe ADR-Seizure Verified 11/16/21 06:02 metoclopramide [From Reglan] Allergy Intermediate ADR-Irritab Verified 11/16/21 06:02 le codeine Allergy Nausea Verified 11/16/21 06:02 propoxyphene [From Darvon] Allergy unknown Verified 11/16/21 06:02 Current Medications: Generic Name Dose Route Start Last Admin Trade Name Eric PRN Reason Stop Dose Admin Sodium Chloride 1,000 mls @ 30 mls/hr 11/16/21 06:00 11/16/21 06:52 Sodium Chloride 0.9% IV 11/17/21 05:59 30 mls/hr .Q24H SUSAN Administration Pertinent History/Comorbid Conditions* Medical History (Updated 11/13/21 @ 14:40 by Jenise Mendez) Atypical chest pain Barretts esophagus Benign essential hypertension with target blood pressure below 140/90 Dyslipidemia (high LDL; low HDL) IV drug user Narcotic addiction Rhabdomyolysis Rheumatoid arthritis Surgical History (Updated 01/09/20 @ 15:43 by Bud Wan MD) Hx of appendectomy Hx of section Hx of cholecystectomy Hx of neck surgery Social History Smoking and tobacco status: current every day smoker cigarettes Packs smoked per day: 0.5 Years cigarettes smoked: 27 Quit status (tobacco): has tried quititng Number of times tried to quit tobacco: 1 Second hand smoke exposure: Yes Alcohol intake: current Alcohol intake frequency: holidays/special occasions only Alcohol type: beer Adopted: No Marital status: service: No History of recent travel: No Current gender identity: Female Pertinent Exam Findings alert, oriented x 3, clear to auscultation bilaterally, regular rate & rhythm and operative site marked Recommendations Surgery/Procedure today Coding Level of Care Code Acute Warehouse Order Puller for Tone Da Silva
[2021-11-16 07:16] LABS: OR HCG Qualitative Urine Negative (Negative)
--- NOTE | 2021-11-16 07:35 | ANES.PROC ---
Anesthesia Procedures Procedure/Date: 11/16/21 Nerve Block ^: Nerve Block 1: Main Anesthesia: spinal anesthesia block Time Out Performed: Yes Consent: requested by attending/covering physician, from patient, risks and benefits reviewed and patient agrees to proceed Nerve block location: adductor canal (right) Anesthesia monitors applied: pulse oximetry, EKG, BP cuff and oxygen Nerve block position: supine Anesthetic Used: ropivicaine 0.5% Amount of anesthesia used (mL): 20 Ultrasound used to: recognize landmarks Nerve Stimulator Used?: No Interscalene/Femoral BLK: 4 stimuplex 21 g needle used for position and inplane approach Injection: neg aspiration of heme Patient Tolerated Procedure: well Complications: none
[2021-11-16] MEDS: EPINEPHrine 1 mg/mL INJ XX (08:09)
[2021-11-16] MEDS: ketorolac 30 mg/mL INJ XX (08:09)
[2021-11-16] MEDS: tranexamic acid 1,000 mg/10mL SDV 1000 MG XX (08:10)
[2021-11-16] MEDS: tranexamic acid 1,000 mg/10mL SDV 1000 MG IV (08:10)
--- NOTE | 2021-11-16 09:11 | P.OP_ITS ---
Operative Report Date of procedure: November 16, 2021 Pre-op diagnosis: Preop Diagnosis OsteoarthritisRight knee Post-op diagnosis: same Post-op diagnosis: Same Post-op findings: Same Procedure done: Right total knee arthroplasty Implants: [place] total knee arthroplasty components were used includin) Size 3 triathalon cruciate retaining femoral component 2) Size 3 Tritanium tibial component 3) Size 3/9 mm thickness CR tibial bearing insert Pathology: none sent Surgeon: Eliseo Tran Anesthesia: Nerve Block (Spinal, adductor canal block) Estimated blood loss (mL): 200 Findings: The patient had eburnated bone over the medial femoral condyle and medial tibial plateau. She had chondromalacia of the trochlea but relatively preserved cartilage over the patella Condition: stable Disposition: PACU Procedure: The patient was taken to the operating room. Patient was given 1 g of tranexamic acid . The above anesthesia provided by the anesthesia service. A timeout was performed. The patient was prepped and draped in the usual fashion with the lower extremity exposed. A anterior incision was made, midline, from a point proximal to the patella to the distal tibial tubercle. The knee was entered through a medial parapatellar approach. The patella could be displaced laterally and the knee flexed. The patellar fat pad was resected to provide better visibility. Retractors were placed medially and laterally adjacent to the tibial plateau. The femoral canal was drilled in line with the longitudinal axis of the femur. Intramedullary femoral guide for used to make a distal femoral cut in 5 degrees of valgus, resecting 8 mm from the more prominent condyle. Next the extra medullary tibial guide was placed in alignment with the longitudinal axis of the tibia. The cutting guides were set to remove just over 9 mm from the high tibial plateau. The proximal tibia was then cut. The femoral measuring guide was then placed over the distal femur. Rotation was verified checking the relationship of the guide to the condyle and the trochlear groove. The femur was measured and cut for the desired femoral component. The desired tibial baseplate was then chosen. A trial reduction with the femur tibial baseplate and polyethylene was done, assuring that the knee was stable throughout full motion. Ligament balancing involved nothing more than released the deep medial collateral ligament.The tibia was prepared for the tibial baseplate. The patella was inspected and found to be relatively free of chondromalacia. Decision was made not to proceed with patellar replacement. the posterior capsule and collateral ligaments were then injected with a solution of 100 mL of 0.2% ropivacaine, 1 mL of a 1:1000 epinephrine solution, 30 mg of Toradol, and 1 g of tranexamic acid. Final polyethylene component was then snapped into place into the tibia. The extensor retinaculum was closed with a running 1 Stratafix interrupted 1 Ethibond. The subcutaneous tissues were closed with 2-0 Vicryl and the skin was closed with a running 4-0 Stratafix. The wound was covered with a Dermabond Prineo dressing. It was covered with 4xrs and a compressive Tubigauze was applied. The patient was taken to recovery room in stable condition.
--- NOTE | 2021-11-16 09:18 | XRR_ITS ---
PROCEDURE INFORMATION: Exam: XR Right Knee Exam date and time: 11/16/2021 9:25 AM Age: 46 years old Clinical indication: Device placement; Joint replacement hardware; Prior surgery; Surgery date: Post-operative (0-2 days); Surgery type: Right total knee arthroplasty TECHNIQUE: Imaging protocol: XR Right knee. Views: 1 or 2 views. COMPARISON: CR XR knees AP WB w RT lmt ORTH 10/09/2021 10:03 AM FINDINGS: Bones/joints: The patient has undergone recent insertion of a total knee prosthesis. Some gas is present in the soft tissues from the recent surgery. There is no fracture. Soft tissues: See Bones/joints finding. XR/XR knee RT 1-2V [id number] IMPRESSION: Satisfactory appearance of the knee prosthesis.
--- NOTE | 2021-11-16 09:39 | SUR.PHASEI ---
0908 PT TO PACU 4 AWAKE ALERT, PT WAS SPINAL ANESTHESIA WITH ADDUCTOR CANAL BLOCK DISTAL RT FOOT PINK WARM WITH STRONG REGULAR PULSE PALPATED AND MARKED DRESSING TO RT KNEE D/I FIRST ICE TO RT KNEE, IV TO RT INNER FA PATENT TO NS 200ML AT KVO RATE PER GRAVITY. MONITOR SR WITH NO ECTOPY NOTED, PT ON RA WITH SATS 96% PT ID BRACELET TO LT WRIST PT ID'D WITH 2 IDENTIFIERS , PT HAS BILAT FOOT PUMPS IN PLACE AND WORKING. 0940 X RAY AT BEDSIDE, PT TOLERATED WELL, DR MONTGOMERY AT BEDSIDE EARLIER AND TALKED WITH PT, PT VSS MONITOR UNCHANGED AND RT KNEE DRESSING D/I UNCHANGED.
--- NOTE | 2021-11-16 09:58 | SUR.PHASEI ---
PT HOB AT 30 DEGREES SPINAL LEVEL NOW AT T 12 WAS T 8 ON PACU ADMISSION, PT NOW ABLE TO MOVE BILAT TOES TO COMMAND, PT DENIES PAIN AND NAUSEA. VSS.
[2021-11-16] MEDS: sodium chloride 0.9% 1,000 ML 100 ML IV ×2 (10:45→23:20)
[2021-11-16] MEDS: oxyCODONE 5 mg IR Tab/Cap 10 MG PO ×4 (12:05→23:19)
[2021-11-16] MEDS: CELEcoxib 200 mg Capsule PO (13:19)
--- NOTE | 2021-11-16 16:07 | ANE.PACU2 ---
Inpatient post-anesthesia follow up: Airway intact: Yes Vital signs: Temperature 97.7 F Pulse Rate 62 Respiratory Rate 20 Blood Pressure 125/85 Pulse Oximetry 97 Oxygen Delivery Me thod Room Air Oxygen Flow Rate Fraction of Inspir ed Oxygen Hydration adequate: Yes Nausea and vomiting: No Pain level: 2 Mental status: Baseline
[2021-11-16] MEDS: famotidine 20 mg Tablet PO (17:38)
[2021-11-16] MEDS: CLONazepam 0.5 mg Tablet PO (17:38)
[2021-11-16] MEDS: naproxen 500 mg Tablet PO (17:39)
--- NOTE | 2021-11-16 19:44 | PC.NURSE ---
1900 PT UP TO BATHROOM, USED WALKER AND DID VERY WELL, VOIDED AND THEN AMBULATED TO BED. DID GOOD, FOOT PUMPS ON AND CALL LIGHT WITHIN EASY REACH. WELL TABLE AND PHONES WITHIN EASY REACH.
[2021-11-17] VITALS (7 sets, daily range): BP systolic 124–153; BP diastolic 82–96; PULSE 55–68; RESP 16–17; TEMP 36.4–36.8; O2SAT 96–98
[2021-11-17] MEDS: oxyCODONE 5 mg IR Tab/Cap 10 MG PO ×4 (03:04→13:55)
[2021-11-17] MEDS: CELEcoxib 200 mg Capsule PO ×2 (03:04→13:55)
[2021-11-17 04:37] LABS: Hemoglobin 11.2 g/dL (11.5-15.3)
[2021-11-17] MEDS: acetaminophen 500 mg Tablet 1000 MG PO ×2 (07:00→13:55)
--- NOTE | 2021-11-17 07:14 | P.DS_ITS ---
Discharge Providers Date of Admission: 11/16/21 10:03 Date of Discharge: November 17, 2021 Attending Provider at Admission: Eliseo Montgomery MD Attending Provider at Discharge: Eliseo Montgomery MD Primary Care Provider: Kristan Colon DO Diagnoses at Discharge Discharge Diagnosis (1) Status post right knee replacement: Status: Acute (2) Osteoarthritis of right knee: Status: Deleted (3) Opioid use disorder, severe, dependence: Status: Acute Hospital Course Hospital Course The patient tolerated surgery well. They remained hemodynamically stable. They was begun on aspirin and foot for DVT prophylaxis. The patient was mobilized with therapy beginning the day of surgery and by the first postoperative day independent with the walker. Pain control was an issue due to her history of narcotic usage but as the pain was adequately controlled and they were fully mobile they were discharged home. Physical Exam Narrative: On the day of discharge the knee incision was clean. They had no drainage. There is minimal swelling in the thigh and knee and the calf. No distal neurovascular deficits were noted Urinary Catheter Management: Lopez: Cath Placed During This Visit: yes, but has since been removed by the nurse Urinary Catheter Date of Insertion: 11/16/21 Urinary Catheter Time of Insertion: 07:35 Date Urinary Catheter Removed: 11/16/21 Time Urinary Catheter Discontinued: 08:15 Discharge Data Studies Completed and Pending Completed Studies During Hospitalization Category Date Time Status XR knee RT 1-2V 08400 Routine Exams 11/16/21 09:18 Completed Radiology Impressions Knee X-Ray 11/16/21 09:18 IMPRESSION: Satisfactory appearance of the knee prosthesis. Laboratory Results Hgb 11.2 g/dL (11.5-15.3) L 11/17/21 04:33 Urine HCG, Qual Negative (Negative) 11/16/21 07:15 Vitals Last Vital Signs Temp 98.2 F 11/17/21 04:20 Pulse 62 11/17/21 04:20 Resp 16 11/17/21 06:04 BP 153/89 11/17/21 04:20 Pulse Ox 96 11/17/21 04:20 Discharge Plan Discharge Patient Disposition: Home Condition: Stable Prescriptions: New oxycodone 5 mg Tablet 10 mg PO Q3H PRN (Reason: Severe Pain) 7 Days Qty: 50 0RF acetaminophen 500 mg Tablet 1,000 mg PO Q8H 14 Days Qty: 84 0RF celecoxib 200 mg Capsule 200 mg PO Q12H 14 Days Qty: 28 0RF Continued famotidine 20 mg tablet 20 mg PO BID 0RF (DME) Medial Bodily Injury Adjuster Knee Brace See Rx Instructions .ROUTE .MEDSUPPLY Qty: 1 0RF Rx Instructions: As directed aspirin [Adult Aspirin Regimen] 81 mg tablet,delayed release (DR/EC) 81 mg PO DAILY 0RF Combivent Respimat 20-100 mcg/actuation mist 1 puff inhalation QID 0RF Rx Instructions: space evenly during waking hours ergocalciferol (vitamin D2) 1,250 mcg (50,000 unit) capsule 1,250 mcg PO UNK 0RF Rx Instructions: PT STATES THAT SHE TAKES IT TWICE A MONTH AND DOES NOT KNOW WHEN SHE TOOK IT LAST. IT HAS BEEN A WHILE. Narcan 4 mg/actuation spray,non-aerosol 4 mg intranasal Q2M PRN (Reason: (Drug) Ingestion) 0RF Rx Instructions: spray 1 dose into ONE nostril; alternate nostrils w each dose until help arrives buprenorphine-naloxone 8-2 mg tablet, sublingual 1 tab sublingual DAILY 0RF gabapentin 100 mg capsule 100 mg PO TID 0RF clonazepam 1 mg tablet 0.5 mg PO BID 0RF nitroglycerin [Nitrostat] 0.4 mg tablet, sublingual 0.4 mg SUBLINGUAL Q5M PRN (Reason: chest pain) Qty: 30 3RF Rx Instructions: do not exceed 3 doses per episode omeprazole magnesium [Prilosec OTC] 20 mg tablet,delayed release (DR/EC) 40 mg PO DAILY 0RF multivitamin [Multiple Vitamins] Tablet 1 tab PO DAILY 0RF fluoxetine 60 mg tablet 60 mg PO DAILY 0RF Discontinued naproxen [Naprosyn] 500 mg tablet 500 mg PO BID Qty: 60 0RF Discharge Orders: Discharge Order (Routine); Ordered 11/17/21 Ordered By: Eliseo Montgomery Other Ambulatory Orders: DME: [facility]ant[facility] (Order) Location: None Selected Ordered By: Eliseo Montgomery Referrals: Eliseo Montgomery MD [Physician] - 11/20/21 8:00 am Discharge Diet: Advance as tolerated Discharge Activity: Limit activity as instructed Patient Instructions: Opioid Safety Activity Restrictions/Additional Instructions: Okay to shower Keep Tubigauze sleeve in place for swelling. Okay to remove for hygiene. Apply FirstIce up to 20 min/hr for pain and swelling Take Celebrex twice a day for the next 15 days for pain , discontinue other anti-inflammatories Take Tylenol 500mg (2 tabs) as needed 3 times a day for mild pain take oxycodone for breakthrough pain. Exercises per physical therapy. May weight-bear as tolerated on total knee arthroplasty IF HAVE ANY PROBLEMS OR QUESTIONS CALL HOSPITAL DESIGN CHECKER AT AND ASK TO HAVE DR. MONTGOMERY PAGEAmara. Discharge Attestations Time Spent in Discharge Care*: other Quality Metrics Clinical Quality Measures [ No reported AMI, CVA or VTE this stay] Coding Level of Care Code Acute g [facility] note Diagnoses Osteoarthritis of right knee M17.11 Status post right knee replacement Z96.651 Opioid use disorder, severe, dependence F11.20
[2021-11-17] MEDS: gabapentin 300 mg Capsule PO (09:42)
[2021-11-17] MEDS: naproxen 500 mg Tablet PO (09:42)
[2021-11-17] MEDS: aspirin 81 mg EC Tablet PO (09:43)
[2021-11-17] MEDS: multivitamin therapeutic Tablet 1 TAB PO (09:43)
[2021-11-17] MEDS: pantoprazole DR 40 mg Tablet PO (09:43)
[2021-11-17] MEDS: fluoxetine 20 mg Capsule 60 MG PO (09:43)
[2021-11-17] MEDS: famotidine 20 mg Tablet PO (09:43)
== END 2021-11-17 14:13 | disposition home or self-care (01) ==
LOC: OBGYN 10:04
PROVIDERS: Anesthesiology; Admitting Provider Orthopaedic Surgery; PCP Family Medicine; Visit Provider Orthopaedic Surgery
PROC: (CPT 27447; principal; 2021-11-16 07:00)
DX: M17.11 Unilateral primary osteoarthritis, right knee (principal); M06.9 Rheumatoid arthritis, unspecified; F11.20 Opioid dependence, uncomplicated; E78.5 Hyperlipidemia, unspecified; J44.9 Chronic obstructive pulmonary disease, unspecified; Z86.19 Personal history of other infectious and parasitic diseases; K21.9 Gastro-esophageal reflux disease without esophagitis; I10 Essential (primary) hypertension; F17.210 Nicotine dependence, cigarettes, uncomplicated
CPT/HCPCS: 27447; 51702; 73560; 84703; 85018; 97110; 97116; 97161; 97165; C1776; G0378; J0171; J1580; J1885; J2250; J2704; J2795; J3535; J7030

== ENCOUNTER → 2021-11-24 13:58 | Outpatient (BNVA) | payer MEDICAID, SELFPAY | PROVIDERS: PCP Family Medicine; Visit Provider Nurse Practitioner Family | DX: Z96.651 Presence of right artificial knee joint (principal) | CPT/HCPCS: 73560; 73565; 99024 ==

== ENCOUNTER → 2022-07-02 11:37 | Outpatient (BNVA) | payer MEDICAID, SELFPAY | PROVIDERS: PCP Family Medicine; Visit Provider Family Medicine | DX: M19.90 Unspecified osteoarthritis, unspecified site (principal); I10 Essential (primary) hypertension; N83.209 Unspecified ovarian cyst, unspecified side; Z12.11 Encounter for screening for malignant neoplasm of colon; Z12.12 Encounter for screening for malignant neoplasm of rectum; F33.2 Major depressive disorder, recurrent severe without psychotic features; F41.9 Anxiety disorder, unspecified; F15.21 Other stimulant dependence, in remission; Z96.651 Presence of right artificial knee joint; K21.9 Gastro-esophageal reflux disease without esophagitis; Z12.39 Encounter for other screening for malignant neoplasm of breast | CPT/HCPCS: 85025 ==

== ENCOUNTER 2022-07-16 09:08 | Outpatient (CLI) | payer MEDICAID, SELFPAY ==
--- NOTE | 2022-07-16 09:18 | MM_ITS ---
WS: [id number] BILATERAL SCREENING DIGITAL TOMOSYNTHESIS MAMMOGRAM WITH CAD HISTORY: breast cancer screening COMPARISON: 07/16/2014 Bilateral CC and MLO views with tomosynthesis and synthetic mammography submitted. Computer aided det ection analyzed. Breast composition: The breasts are heterogeneously dense, which may obscure small masses. No suspici ous masses, microcalcifications or architectural distortion. MM/[place] [id number] IMPRESSION: BI-RADS: 1-Negative FOLLOW UP: 1 Year Follow-up
== END 2022-07-16 09:09 | disposition home or self-care (01) ==
PROVIDERS: PCP Family Medicine; Visit Provider Family Medicine
DX: Z12.31 Encounter for screening mammogram for malignant neoplasm of breast (principal); M19.90 Unspecified osteoarthritis, unspecified site; I10 Essential (primary) hypertension
CPT/HCPCS: 77063; 77067; 80053; 80061; 85025; 85651; 86431

== ENCOUNTER → 2022-11-12 13:40 | Outpatient (BNVA) | payer MEDICAID, SELFPAY | PROVIDERS: PCP Family Medicine; Visit Provider Obstetrics & Gynecology | DX: Z01.419 Encounter for gynecological examination (general) (routine) without abnormal findings (principal); Z78.0 Asymptomatic menopausal state | CPT/HCPCS: 83001; 83002; 87624 ==

== ENCOUNTER 2022-11-17 18:12 | Emergency (ER) | payer MEDICAID, SELFPAY ==
[2022-11-17 18:16] VITALS: BP 118/81; PULSE 81; RESP 18; TEMP 36.7; O2SAT 96; BMI 28.3
--- NOTE | 2022-11-17 18:31 | ECG_ITS ---
[facility] Test Date: 2022-11-17 Pat Name: Mimi Kennedy Department: Room: Gender: Female Network Specialist: : 1975 Requested By: Tanmay Ferreira Order Number: [id number] Kellogg MD: Kyle Grover M.D. Measurements Intervals [place] Rate: 73 P: 53 SD: 180 QRS: 13 QRSD: 86 T: 52 QT: 392 QTc: 433 Interpretive Statements SINUS RHYTHM POSSIBLE RIGHT VENTRICULAR CONDUCTION DELAY [RSR (QR) IN V1/V2] NONSPECIFIC T-WAVE ABNORMALITY Compared to ECG 10/18/2019 13:38:54 No significant changes Electronically Signed On 11-17-2022 19:45:54 CDT by Kyle Grover M.D. [id number]
--- NOTE | 2022-11-17 18:34 | ED_ITS ---
HPI - Abdominal Pain General: Chief Complaint: Abdominal Pain Stated Complaint: SOB Time Seen by Provider: 11/17/22 18:33 History of Present Illness: 47-year-old female comes in today with complaints of right side posterior rib pain radiating to the anterior ribs. Patient reports on Tuesday she had lifted some heavy boxes and since then she had has increasing right anterior rib pain and discomfort. Patient appears nontoxic. Patient does have a history of asthma/COPD, hypertension, substance use disorder. Associated Symptoms: Reports diarrhea and nausea; Denies constipation, fever(s) and vomiting Review of Systems General: Reports: 10 or more systems reviewed and unremarkable except in HPI and below Const: Denies: fever(s) ENMT: Denies: throat pain or nasal discharge Card: Denies: chest pain or palpitations Resp: Denies: dyspnea GI: Reports: nausea and diarrhea; Denies: vomiting or constipation : Denies: difficulty voiding Musc: Reports: other (Right anterior rib pain) Skin/Breast: Denies: rash Neuro: Denies: headache(s) Psych: Denies: anxiety or depression Endo: Denies: polyuria PFSH ED PFSH: Medical History (Updated 11/17/22 @ 19:37 by PATTIE Cao) Anxiety Barretts esophagus Benign essential hypertension with target blood pressure below 140/90 Benzodiazepine misuse Claustrophobia Dyslipidemia (high LDL; low HDL) Dysthymia Hepatitis B antibody positive Hiatal hernia History of lower leg fracture Insomnia IV drug user Narcotic addiction Rhabdomyolysis Rheumatoid arthritis Seizures Tobacco dependence Surgical History History of exploratory laparotomy removal of endometriosis Hx of appendectomy Hx of section Hx of cholecystectomy Hx of knee surgery Hx of neck surgery Family History Father Bleeding disorder CAD (coronary artery disease) Agent orange exposure Mother Cancer melanoma, breast Grandmother Cancer Maternal-breast, lung, bone, melanoma, brain Grandmother Cancer Paternal--lung Other Chronic kidney disease (CKD) Clotting disorder Diabetes Hyperlipidemia Hypertension Lung disease Psychiatric illness Physical Exam Const: COMMON NORMALS: alert HENMT: COMMON NORMALS: normocephalic HEAD & SCALP: normocephalic Neck/C-Spine: COMMON NORMALS: full ROM Chest: CHEST: Yes tenderness (Right anterior lower rib) Resp: COMMON NORMALS: normal respiratory effort and clear to auscultation bilaterally AUSCULTATION: clear to auscultation bilaterally Cardio: COMMON NORMALS: regular rate and regular rhythm RATE: regular rate RHYTHM: regular rhythm GI: COMMON NORMALS: Soft to palpation PALPATION: Yes Soft to palpation and Yes Tenderness to palpation present (GI) Details: RUQ : COMMON NORMALS: Yes no CVA tenderness BLADDER/KIDNEY EXAM: Yes no CVA tenderness Back/Pelvis: COMMON NORMALS: no CVA tenderness Extremity: COMMON NORMALS: normal to inspection Neuro: SENSORIUM/ORIENTATION: Yes alert Skin: COMMON NORMALS: turgor normal GENERAL SKIN EXAM: turgor normal Course Vital Signs: Vital signs: Vital Signs Temperature 98.0 F 11/17/22 18:16 Pulse Rate 82 11/17/22 18:49 Respiratory Rate 14 11/17/22 18:49 Blood Pressure 110/68 11/17/22 18:49 Pulse Oximetry 96 11/17/22 18:16 Oxygen Delivery Me thod Room Air 11/17/22 18:16 MDM - Abdominal Pain Medical Decision Making 47-year-old female comes in today for complaints of right anterior rib pain. Patient appears nontoxic. Patient appears in moderate to severe pain. On exam patient has reproducible chest wall pain on palpation of the right anterior ribs. No crepitus or subcu emphysema is noted. Respirations are even lungs are clear to auscultation. Vital signs are normal. Differential diagnosis includes but not limited to pleural effusion, pneumonia, pneumothorax, rib fracture, costochondritis. No injury is noted. Chest x-ray was unremarkable. Laboratory values were unremarkable. EKG was normal sinus rhythm. Patient probably has some costochondritis secondary to lifting heavy object on Tuesday. We will give her 10 mg dexamethasone and keep her on some oral pain relievers for the next couple of days. Patient will be maintained with oral prednisone for 5 days. Reassured patient that the pain should start resolving follow-up with primary care return to ED for new concerns. Lab Data 11/17/22 18:48 11/17/22 18:48 Labs/Radiology: Radiology Impressions Chest X-Ray 11/17/22 18:43 IMPRESSION: No acute cardiopulmonary abnormality. Laboratory Results WBC 8.2 10^3/uL (4.0-10.0) 11/17/22 18:48 RBC 4.78 10^6/uL (4.1-5.3) 11/17/22 18:48 Hgb 14.3 g/dL (11.5-15.3) 11/17/22 18:48 Hct 42.4 % (37.0-47.0) 11/17/22 18:48 MCV 88.7 fl (81-99) 11/17/22 18:48 MCH 29.9 pg (28.0-34.0) 11/17/22 18:48 MCHC 33.7 g/dL (30.0-36.0) 11/17/22 18:48 RDW 13.0 % (12.1-15.1) 11/17/22 18:48 Plt Count 190 10^3/cmm (130-400) 11/17/22 18:48 MPV 10.1 fL (7.4-10.4) 11/17/22 18:48 Neut % (Auto) 58.3 % 11/17/22 18:48 Lymph % (Auto) 33.6 % 11/17/22 18:48 [place] % (Auto) 5.2 % 11/17/22 18:48 Eos % (Auto) 1.9 % 11/17/22 18:48 Baso % (Auto) 0.6 % 11/17/22 18:48 Neut # (Auto) 4.79 10^3/uL (1.8-7.7) 11/17/22 18:48 Lymph # (Auto) 2.8 10^3/uL (0.8-4.8) 11/17/22 18:48 Charlotte # (Auto) 0.4 10^3/uL (0.2-0.9) 11/17/22 18:48 Eos # (Auto) 0.2 10^3/uL (0.0-0.8) 11/17/22 18:48 Baso # (Auto) 0.1 10^3/uL (0.0-0.1) 11/17/22 18:48 Nucleated RBC % (auto) 0 % 11/17/22 18:48 Nucleated RBCs # 0.0 /100WBC 11/17/22 18:48 Sodium 133 mmol/L (136-145) L 11/17/22 18:48 Potassium 4.1 mmol/L (3.5-5.1) 11/17/22 18:48 Chloride 95 mmol/L (98-107) L 11/17/22 18:48 Carbon Dioxide 27 mmol/L (22-29) 11/17/22 18:48 Anion Gap 15.1 (5-19) 11/17/22 18:48 BUN 8 mg/dL (6-20) 11/17/22 18:48 Creatinine 0.8 mg/dL (0.5-0.9) 11/17/22 18:48 GFR Calculation 76.2 mL/min (90-130) L 11/17/22 18:48 Glucose 103 mg/dL (65-115) 11/17/22 18:48 Calculated Osmolality 275 mOsm/kg (285-295) L 11/17/22 18:48 Calcium 9.4 mg/dL (8.5-10.5) 11/17/22 18:48 Total Bilirubin 0.2 mg/dL (0.15-1.2) 11/17/22 18:48 AST 35 U/L (0-32) H 11/17/22 18:48 ALT 34 U/L (0-33) H 11/17/22 18:48 Alkaline Phosphatase 86 U/L (35-105) 11/17/22 18:48 C-Reactive Protein 3.9 mg/L (0.0-4.9) 11/17/22 18:48 Total Protein 7.6 g/dL (6.6-8.7) 11/17/22 18:48 Albumin 4.3 g/dL (3.5-5.2) 11/17/22 18:48 Globulin 3.3 g/dL (1.3-4.6) 11/17/22 18:48 EKG Data EKG 1: EKG interpretation date: 11/17/22 EKG interpretation time: 18:45 Prior EKG tracings: not available for review Interpretation: EKG shows a sinus rhythm with a regular rate at 73 bpm. Some artifact is noted on the EKG. No ST elevation is noted. No ectopy is noted. Prior exam was not available for reviewed. Discharge Plan Discharge Patient Disposition: Home Clinical Impression: Costochondritis, acute Condition: Stable Prescriptions: New hydrocodone-acetaminophen 7.5-325 mg tablet 1 tab PO Q8H PRN (Reason: pain (scale score 7-10)) Qty: 6 0RF No Action famotidine 20 mg tablet 20 mg PO DAILY aspirin [Adult Aspirin Regimen] 81 mg tablet,delayed release (DR/EC) 81 mg PO DAILY Narcan 4 mg/actuation spray,non-aerosol 4 mg intranasal Q2M PRN (Reason: (Drug) Ingestion) Rx Instructions: spray 1 dose into ONE nostril; alternate nostrils w each dose until help arrives gabapentin 100 mg capsule 200 mg PO TID albuterol sulfate [ProAir HFA] 90 mcg/actuation HFA aerosol inhaler 2 puff inhalation 6XD PRN (Reason: shortness of breath or wheezing) Qty: 8.5 0RF celecoxib [Celebrex] 200 mg capsule 200 mg PO DAILY ezetimibe 10 mg tablet 10 mg PO DAILY Qty: 90 0RF omeprazole magnesium [Prilosec OTC] 20 mg tablet,delayed release (DR/EC) 40 mg PO BID Qty: 120 0RF fluoxetine 60 mg tablet 60 mg PO QAM Qty: 90 0RF sucralfate [Carafate] 1 gram tablet 1 g PO BID Qty: 60 0RF Sublocade 300 mg/1.5 mL solution, extended rel syringe 300 mg SUBCUT .monthly ondansetron HCl 4 mg tablet 4 mg PO Q8H PRN (Reason: nausea and vomiting) Qty: 60 0RF nitroglycerin [Nitrostat] 0.4 mg tablet, sublingual 0.4 mg SUBLINGUAL Q5M PRN (Reason: chest pain) Qty: 30 3RF Rx Instructions: do not exceed 3 doses per episode Combivent Respimat 20-100 mcg/actuation mist 1 puff inhalation QID Qty: 4 2RF Rx Instructions: space evenly during waking hours clonazepam 1 mg tablet 1 mg PO BID Qty: 60 0RF metronidazole 500 mg tablet 500 mg PO BID Qty: 14 0RF levofloxacin 500 mg tablet 500 mg PO DAILY Qty: 10 0RF multivitamin [Multiple Vitamins] Tablet 1 tab PO DAILY Discharge Orders: Discharge ED (Routine); Ordered 11/17/22 Ordered By: Tanmay Beckett Referrals: Carlito Condon MD [Primary Care Provider] - Discharge Diet: Usual diet Discharge Activity: Increase activity as tolerated Patient Instructions: Costochondritis (ED), Opioid Safety, Pain Management Activity Restrictions/Additional Instructions: Home and rest. Activity as tolerated. Use ice or heat for further pain relief. Gentle stretching and range of motion exercises. Follow-up with primary care for further instructions. Return to ED for new concerns. Coding Level of Care Code ED [employer] Representative for Tone Da Silva
--- NOTE | 2022-11-17 18:43 | XRR_ITS ---
PROCEDURE INFORMATION: Exam: XR Chest Exam date and time: 11/17/2022 7:02 PM Age: 47 years old Clinical indication: Chest wall pain; Additional info: Chest pain, right side TECHNIQUE: Imaging protocol: Radiologic exam of the chest. Views: 1 view. COMPARISON: CR XR chest 1V portable [id number] 10/18/2019 2:57 PM FINDINGS: Lungs: The lungs are clear. Pleural spaces: Unremarkable. No pleural effusion. No pneumothorax. Heart/Mediastinum: Unremarkable. No cardiomegaly. Bones/joints: No acute fracture is seen. XR/XR chest 1V portable [id number] IMPRESSION: No acute cardiopulmonary abnormality.
[2022-11-17 18:49] VITALS: BP 110/68; PULSE 82; RESP 14
[2022-11-17 18:56] LABS: Basophils # 0.1 10^3/uL (0.0-0.1); Basophils % 0.6 %; Eosinophils # 0.2 10^3/uL (0.0-0.8); Eosinophils % 1.9 %; Hematocrit 42.4 % (37.0-47.0); Hemoglobin 14.3 g/dL (11.5-15.3); Lymphocytes # 2.8 10^3/uL (0.8-4.8); Lymphocytes % 33.6 %; Mean Corpuscular HGB Conc 33.7 g/dL (30.0-36.0); Mean Corpuscular Hemoglobin 29.9 pg (28.0-34.0); Mean Corpuscular Volume 88.7 fl (81-99); Mean Platelet Volume 10.1 fL (7.4-10.4); Monocytes # 0.4 10^3/uL (0.2-0.9); Monocytes % 5.2 %; Neutrophils # 4.79 10^3/uL (1.8-7.7); Neutrophils % 58.3 %; Nucleated Red Blood Cells % 0 %; Platelet Count 190 10^3/cmm (130-400); Red Blood Count 4.78 10^6/uL (4.1-5.3); White Blood Count 8.2 10^3/uL (4.0-10.0)
[2022-11-17 19:08] LABS: Alanine Aminotransferase 34 U/L (0-33); Albumin Level 4.3 g/dL (3.5-5.2); Alkaline Phosphatase 86 U/L (35-105); Anion Gap 15.1 (5-19); Aspartate Amino Transferase 35 U/L (0-32); Blood Urea Nitrogen 8 mg/dL (6-20); C Reactive Protein 3.9 mg/L (0.0-4.9); Calcium 9.4 mg/dL (8.5-10.5); Carbon Dioxide 27 mmol/L (22-29); Chloride 95 mmol/L (98-107); Globulin 3.3 g/dL (1.3-4.6); Glomerular Filtration Rate 76.2 mL/min (90-130); Glucose 103 mg/dL (65-115); Osmolality Calculated 275 mOsm/kg (285-295); Potassium 4.1 mmol/L (3.5-5.1); Sodium 133 mmol/L (136-145); Total Bilirubin 0.2 mg/dL (0.15-1.2); Total Protein 7.6 g/dL (6.6-8.7)
[2022-11-17] MEDS: dexamethasone 10 mg/mL INJ IVP (19:45)
[2022-11-17] MEDS: fentaNYL 50 mcg/mL INJ 2mL 70 MCG IVP (19:45)
[2022-11-17 20:03] VITALS: BP 114/68; PULSE 80; RESP 17; O2SAT 98
[2022-11-17 20:26] LABS: SARS Covid-2 Antigen negative (Negative)
== END 2022-11-17 20:04 | disposition home or self-care (01) ==
PROVIDERS: Emergency Provider Nurse Practitioner Family; PCP Family Medicine
DX: M94.0 Chondrocostal junction syndrome [Tietze] (principal)
CPT/HCPCS: 71045; 80053; 85025; 86140; 87426; 93005; 96374; 96375; 99285; J1100; J3010

== ENCOUNTER → 2022-12-28 10:52 | Outpatient (BNVA) | payer MEDICAID, SELFPAY | PROVIDERS: PCP Family Medicine; Visit Provider Obstetrics & Gynecology | DX: R10.2 Pelvic and perineal pain (principal) | CPT/HCPCS: 76830 ==

== ENCOUNTER 2023-01-14 13:06 | Outpatient (CLI) | payer MEDICAID, SELFPAY ==
--- NOTE | 2023-01-14 13:00 | CT_ITS ---
WS: [id number] CT ABDOMEN AND PELVIS WITH CONTRAST HISTORY: abdominal pain TECHNIQUE: Imaging performed of the abdomen and pelvis with IV contrast. Single phase imaging of the abdomen. Coronal and sagittal reformats are submitted. All CT scans at [facility] use at [address] one of these dose optimization techniques: automated exposure control; mA and/or kV adjustment per patient size (includes targeted exams where dose is matched to clinical indication); or iterative re construction. IV CONTRAST: Omnipaque 350; 100 mL IV. Oral contrast: Yes. DLP: 362.04 mGy.cm COMPARISON: 01/20/2019 Lower thorax: 2 mm left lower lobe nodule is stable. Heart is normal size. Small hiatal hernia. Liver/biliary system: Normal size with no intrahepatic dilatation. There are small calcifications adj acent to the right lobe of the liver which are stable. Gallbladder: Cholecystectomy. No bile duct dilatation. Pancreas: Normal size pancreas and pancreatic duct. No adjacent inflammation. Spleen: Normal size spleen. No mass or infarct. Adrenal glands: Normal. Right kidney: Normal. Left kidney: Normal. Aorta: Mild atherosclerosis aorta. Lymphadenopathy: None. Free fluid: None. GI tract: Moderately distended stomach with food products. No obstructive pattern. There is diffuse m oderate constipation throughout the entire colon. Prior appendectomy. Abdominal wall: Fat containing umbilical hernia. Pelvis: No free fluid or adenopathy within the pelvis. Bones: Unremarkable. IMPRESSION: 1. Diffuse moderate constipation throughout the entire colon. 2. Prior cholecystectomy and appendectomy. 3. Mild atherosclerosis aorta. 4. No ascites or adenopathy.
[2023-01-14] MEDS: iohexol 350 mg/mL 500 mL Btl (per mL) PO (13:32)
[2023-01-14] MEDS: iohexol 350 mg/mL 500 mL Btl (per mL) IV (14:31)
== END 2023-01-14 13:07 | disposition home or self-care (01) ==
LOC: RAD 13:08
PROVIDERS: PCP Family Medicine; Visit Provider Surgery
DX: R10.9 Unspecified abdominal pain (principal); K59.00 Constipation, unspecified; Z90.49 Acquired absence of other specified parts of digestive tract; I70.0 Atherosclerosis of aorta
CPT/HCPCS: 74177; Q9967

== ENCOUNTER 2023-02-18 08:49 | Day surgery (SDC) | payer MEDICAID, SELFPAY ==
[2023-02-16 11:35] VITALS: BMI 29.2
[2023-02-18 09:14] VITALS: BP 105/74; PULSE 82; RESP 18; TEMP 36.1; O2SAT 95
--- NOTE | 2023-02-18 09:19 | P.ANESASSM_ITS ---
Pre-Anesthetic Assessment Height/Weight: Height 1.57 m Weight 72.575 kg Operation Date: 02/18/23 09:20 Proposed Procedures p 16279 EGD 54420 Colonoscopy R11.0,K21.9,R10.9(Not Applicable) - Elijah Gabriel MD s EGD(Not Applicable) - Elijah Gabriel MD Familial anesthetic complications: none Was Beta Jamari taken within 24 hours: N/A Was Clonidine taken within 24 hours: Yes Social Tobacco (.5 ppd) and No alcohol Exam alert and oriented x 3 Airway Submandibular: within normal limits Cervical ROM: within normal limits Dentition: false History/ROS No significant history except as noted Pulmonary Asthma CV/HEM None reported None reported Hepatic None reported GI Gastroesophageal Reflux Disease Metabolic Hyperlipidemia [facility] Fibromyalgia Neuropsych Seizure (not in 4 years- not on meds.) Anesthetic Plan ASA status: 3 Anesthesia: Anesthesia Evaluation, General and MAC Risk of > 500 ml blood loss (7ml/kg in children): No Medications/Allergies Home Medications Medication Instructions Recorded Confirmed Last Taken Type multivitamin (Multiple Vitamins 1 tab PO DAILY 10/18/19 02/16/23 02/17/23 History tablet) nitroglycerin 0.4 mg sublingual 0.4 mg sublingual Q5M PRN chest 03/11/20 02/18/23 8 Months Ago Rx tablet (Nitrostat) pain #30 tabs ~06/20/22 naloxone 4 mg/actuation nasal 4 mg intranasal Q2M PRN (Drug) 04/17/21 02/16/23 Unknown History spray (Narcan) Ingestion albuterol sulfate 90 mcg/actuation 2 puff inhalation 6XD PRN 06/15/22 02/16/23 02/16/23 Rx aerosol inhaler (ProAir HFA) shortness of breath or wheezing #8.5 grams celecoxib 200 mg capsule (Celebrex) 200 mg PO DAILY 07/02/22 02/16/23 02/17/23 History famotidine 20 mg tablet 20 mg PO DAILY 07/02/22 02/16/23 02/17/23 History ipratropium 20 mcg-albuterol 100 1 puff inhalation QID #4 grams 09/02/22 02/16/23 02/17/23 Rx mcg/actuation mist for inhalation (Combivent Respimat) fluoxetine 60 mg tablet 60 mg PO QAM #90 tabs 09/13/22 02/16/23 02/17/23 Rx sucralfate 1 gram tablet (Carafate) 1 g PO BID #60 tabs 09/13/22 02/16/23 02/17/23 Rx gabapentin 100 mg capsule 200 mg PO TID #180 caps 01/04/23 02/16/23 02/17/23 Rx clonazepam 1 mg tablet 1 mg PO BID #60 tabs 02/09/23 02/18/23 02/18/23 06:30 Rx 0.5mg buprenorphine 8 mg-naloxone 2 mg 8 tab sublingual TID 02/16/23 02/16/23 02/09/23 History sublingual tablet ezetimibe 10 mg tablet 10 mg PO DAILY 02/16/23 02/16/23 02/17/23 History omeprazole 40 mg capsule,delayed 40 mg PO DAILY 02/16/23 02/16/23 02/17/23 History release Allergies Allergy/AdvReac Type Severity Reaction Status Date / Time tramadol Allergy Severe ADR-Seizure Verified 02/18/23 09:09 metoclopramide [From Reglan] Allergy Intermediate ADR-Irritab Verified 02/18/23 09:09 le codeine Allergy Nausea Verified 02/18/23 09:09 propoxyphene [From Darvon] Allergy unknown Verified 02/18/23 09:09 [id number] Reductase AdvReac Severe rhabdo Verified 02/18/23 09:09 Inhibitor PFSH Anesthesia Medical History Anxiety Barretts esophagus Benign essential hypertension with target blood pressure below 140/90 Benzodiazepine misuse Claustrophobia Dyslipidemia (high LDL; low HDL) Dysthymia Endometriosis Hepatitis B antibody positive Hiatal hernia History of lower leg fracture Insomnia IV drug user Rhabdomyolysis Rheumatoid arthritis Seizures Tobacco dependence Surgical History History of exploratory laparotomy removal of endometriosis Hx of appendectomy Hx of section Hx of cholecystectomy Hx of knee surgery Hx of neck surgery Family History Father Bleeding disorder CAD (coronary artery disease) Agent orange exposure Mother Cancer melanoma, breast Grandmother Cancer Maternal-breast, lung, bone, melanoma, brain Grandmother Cancer Paternal--lung Other Chronic kidney disease (CKD) Clotting disorder Diabetes Hyperlipidemia Hypertension Lung disease Psychiatric illness Social History Smoking and tobacco status: current every day smoker cigarettes Packs smoked per day: 1 Alcohol intake: current Alcohol intake frequency: holidays/special occasions only Female Reproductive History Date of last menstrual period: 11/04/21 Data Anesthesia Cardiac Studies: No Data to Display
[2023-02-18] MEDS: sodium chloride 0.9% 1,000 ML 30 ML IV (09:21)
--- NOTE | 2023-02-18 09:21 | W.PM.OPSFHP ---
Same Day Surgery H&P Indication for Procedure/HPI DATE OF PROCEDURE: February 18, 2023 CHIEF COMPLAINT/INDICATIONFOR SURGICAL PROCEDURE: abdominal pain PREOP DIAGNOSIS: abdominal pain PLANNED PROCEDURE: Operation Date: 02/18/23 09:20 Proposed Procedures p 19103 EGD 30004 Colonoscopy R11.0,K21.9,R10.9(Not Applicable) - Elijah Gabriel MD s EGD(Not Applicable) - Elijah Gabriel MD Medications/Allergies* Home Medications Medication Instructions Recorded Confirmed Type multivitamin (Multiple Vitamins 1 tab PO DAILY 10/18/19 02/16/23 History tablet) naloxone 4 mg/actuation nasal 4 mg intranasal Q2M PRN (Drug) 04/17/21 02/16/23 History spray (Narcan) Ingestion celecoxib 200 mg capsule (Celebrex) 200 mg PO DAILY 07/02/22 02/16/23 History famotidine 20 mg tablet 20 mg PO DAILY 07/02/22 02/16/23 History buprenorphine 8 mg-naloxone 2 mg 8 tab sublingual TID 02/16/23 02/16/23 History sublingual tablet ezetimibe 10 mg tablet 10 mg PO DAILY 02/16/23 02/16/23 History omeprazole 40 mg capsule,delayed 40 mg PO DAILY 02/16/23 02/16/23 History release Allergies/Adverse Reactions Allergy/AdvReac Type Severity Reaction Status Date / Time tramadol Allergy Severe ADR-Seizure Verified 02/18/23 09:09 metoclopramide [From Reglan] Allergy Intermediate ADR-Irritab Verified 02/18/23 09:09 le codeine Allergy Nausea Verified 02/18/23 09:09 propoxyphene [From Darvon] Allergy unknown Verified 02/18/23 09:09 [id number] Reductase AdvReac Severe rhabdo Verified 02/18/23 09:09 Inhibitor Pertinent History/Comorbid Conditions* Medical History (Updated 01/03/23 @ 08:02 by Khadijah Fajardo MD) Anxiety Barretts esophagus Benign essential hypertension with target blood pressure below 140/90 Benzodiazepine misuse Claustrophobia Dyslipidemia (high LDL; low HDL) Dysthymia Endometriosis Hepatitis B antibody positive Hiatal hernia History of lower leg fracture Insomnia IV drug user Rhabdomyolysis Rheumatoid arthritis Seizures Tobacco dependence Surgical History (Updated 01/03/23 @ 08:01 by Khadijah Fajardo MD) History of exploratory laparotomy removal of endometriosis Hx of appendectomy Hx of section Hx of cholecystectomy Hx of knee surgery Hx of neck surgery Family History (Updated 07/02/22 @ 10:22 by Denia Daley LPN) Diabetes CAD (coronary artery disease) Father Clotting disorder Hyperlipidemia Psychiatric illness Chronic kidney disease (CKD) Bleeding disorder Father Agent orange exposure Father Lung disease Cancer Mother melanoma, breast Grandmother Maternal-breast, lung, bone, melanoma, brain Grandmother Paternal--lung Hypertension Social History Smoking and tobacco status: current every day smoker cigarettes Packs smoked per day: 1 Alcohol intake: current Alcohol intake frequency: holidays/special occasions only Pertinent Exam Findings alert, oriented x 3, clear to auscultation bilaterally, regular rate & rhythm, operative site marked and procedure specific exam findings (abdomen soft, non tender) Recommendations Surgery/Procedure today Coding Level of Care Code Acute Code for Chg Fwd Diagnoses
[2023-02-18 09:54] VITALS: BP 83/47; PULSE 62; RESP 18; TEMP 36.7; O2SAT 94
[2023-02-18 10:25] VITALS: BP 95/70; PULSE 73; RESP 18; O2SAT 96
--- NOTE | 2023-02-18 12:48 | ANE.PACU2 ---
Inpatient post-anesthesia follow up: Airway intact: Yes Vital signs: Temperature 98.1 F Pulse Rate 73 Respiratory Rate 18 Blood Pressure 95/70 Pulse Oximetry 96 Oxygen Delivery Me thod Room Air Oxygen Flow Rate Fraction of Inspir ed Oxygen Hydration adequate: Yes Nausea and vomiting: No Pain level: 2 Mental status: Baseline
== END 2023-02-18 10:42 | disposition home or self-care (01) ==
PROVIDERS: PCP Family Medicine; Visit Provider Surgery
PROC: 0DJD8ZZ Inspection of Lower Intestinal Tract, Via Natural or Artificial Opening Endoscopic (ICD-10-PCS; CPT 45378; principal; 2023-02-18 09:20)
PROC: 0DJD8ZZ Inspection of Lower Intestinal Tract, Via Natural or Artificial Opening Endoscopic (ICD-10-PCS; CPT 45330; 2023-02-18 09:20)
DX: R10.9 Unspecified abdominal pain (principal); R11.0 Nausea; K21.9 Gastro-esophageal reflux disease without esophagitis; K29.70 Gastritis, unspecified, without bleeding; F17.210 Nicotine dependence, cigarettes, uncomplicated; E78.5 Hyperlipidemia, unspecified; M79.7 Fibromyalgia; M06.9 Rheumatoid arthritis, unspecified
CPT/HCPCS: 43239; 45330; 88305; 88342; J2704; J7030

== ENCOUNTER → 2023-05-03 10:12 | Outpatient (BNVA) | payer MEDICAID, SELFPAY | PROVIDERS: PCP Family Medicine; Visit Provider Internal Medicine Rheumatology | DX: Z79.899 Other long term (current) drug therapy (principal); M19.90 Unspecified osteoarthritis, unspecified site; Z11.1 Encounter for screening for respiratory tuberculosis; Z11.59 Encounter for screening for other viral diseases; M45.6 Ankylosing spondylitis lumbar region; M25.562 Pain in left knee; M25.561 Pain in right knee; M25.552 Pain in left hip; M25.551 Pain in right hip; M25.512 Pain in left shoulder; M25.511 Pain in right shoulder; M25.572 Pain in left ankle and joints of left foot; M25.571 Pain in right ankle and joints of right foot; M25.532 Pain in left wrist; M25.531 Pain in right wrist | CPT/HCPCS: 36415; 73130; 73562; 73630; 80076; 82306; 82565; 85025; 85651; 86038; 86140; 86200; 86480; 86704; 86803; 86812; 87340; 87522 ==

== ENCOUNTER → 2023-09-28 13:07 | Outpatient (BNVA) | payer MEDICAID, SELFPAY | PROVIDERS: PCP Family Medicine; Visit Provider Internal Medicine Rheumatology | DX: Z79.899 Other long term (current) drug therapy (principal); M13.0 Polyarthritis, unspecified; M19.90 Unspecified osteoarthritis, unspecified site; Z71.85 Encounter for immunization safety counseling | CPT/HCPCS: 36415; 80076; 82565; 85025; 86140 ==

== ENCOUNTER 2024-02-13 14:38 | Outpatient (CLI) | payer MEDICAID, SELFPAY ==
[2024-02-13 14:59] LABS: Basophils # 0.1 10^3/uL (0.0-0.1); Basophils % 0.6 %; Eosinophils # 0.2 10^3/uL (0.0-0.8); Eosinophils % 2.4 %; Hematocrit 40.2 % (36-47); Lymphocytes # 2.8 10^3/uL (0.8-4.8); Lymphocytes % 32.9 %; Mean Corpuscular HGB Conc 33.6 g/dL (30-55); Mean Corpuscular Hemoglobin 30.6 pg (27-33); Mean Corpuscular Volume 91.2 fl (85-98); Monocytes # 0.6 10^3/uL (0.2-0.9); Monocytes % 6.6 %; Neutrophils # 4.87 10^3/uL (1.8-7.7); Neutrophils % 57.3 %; Nucleated Red Blood Cells % 0 %; Platelet Count 166 10^3/cmm (157-399); Red Blood Count 4.41 10^6/uL (3.85-5.65); Red Cell Distribution Width 13.7 % (12.1-15.1); White Blood Count 8.49 10^3/uL (3.29-11.43)
[2024-02-13 15:17] LABS: Alanine Aminotransferase 44 U/L (0-33); Albumin Level 4.1 g/dL (3.5-5.2); Alkaline Phosphatase 80 U/L (35-105); Aspartate Amino Transferase 41 U/L (0-32); C Reactive Protein 16.4 mg/L (0.0-4.9); Globulin 3.1 g/dL (1.3-4.6); Glomerular Filtration Rate 105.8 mL/min (90-130); Total Bilirubin 0.4 mg/dL (0.15-1.2); Total Protein 7.2 g/dL (6.6-8.7)
== END 2024-02-13 14:39 | disposition home or self-care (01) ==
LOC: LAB 14:39
PROVIDERS: PCP Family Medicine; Visit Provider Internal Medicine Rheumatology
DX: M19.90 Unspecified osteoarthritis, unspecified site (principal); Z79.899 Other long term (current) drug therapy
CPT/HCPCS: 36415; 80076; 82565; 85025; 86140

== ENCOUNTER 2024-05-04 10:07 | Emergency (ER) | payer MEDICAID, SELFPAY ==
--- NOTE | 2024-05-04 10:33 | XRR_ITS ---
PROCEDURE INFORMATION: Exam: XR Right Ankle Exam date and time: 05/04/2024 10:42 AM Age: 48 years old Clinical indication: Injury or trauma; Fall; Sprain or strain; Ankle; Right; Additional info: Fall pain TECHNIQUE: Imaging protocol: Radiologic exam of the right ankle. Views: 3 or more views. COMPARISON: CR XR foot RT min 3V* [id number] 05/03/2023 10:20 AM FINDINGS: Bones/joints: Normal. Calcaneal spurring. No fracture or dislocation. Soft tissues: Mild lateral soft tissue swelling.. XR/XR ankle RT min 3V* [id number] IMPRESSION: No acute findings.
[2024-05-04 10:46] VITALS: BP 128/66; PULSE 78; RESP 17; TEMP 37; O2SAT 97
[2024-05-04] MEDS: ketorolac 60 mg/2 mL INJ IM (11:32)
[2024-05-04 11:34] VITALS: BP 127/66; PULSE 74; O2SAT 95
--- NOTE | 2024-05-04 12:01 | W.ED.EXTPRO ---
HPI - Extremity Problem General: Chief complaint: Extremity Injury, Lower Stated complaint: Rt possiable ankle fracture Time Seen by Provider: 05/04/24 10:18 History of Present Illness: Presents to the ER with complaints of right ankle pain after tripping while walking her dog. Patient has decreased range of motion secondary to pain. Hurts to put weight on it. Hurts more in the outside in the posterior region. Did not hurt before the fall. Patient denies any other complaints at this time. Related Data Home Medications Medication Instructions Recorded Confirmed naloxone 4 mg/actuation nasal 4 mg intranasal Q2M PRN (Drug) 04/17/21 05/04/24 spray (Narcan) Ingestion gabapentin 300 mg capsule 600 mg PO QID 02/15/24 05/04/24 ezetimibe 10 mg tablet 10 mg PO DAILY 05/04/24 05/04/24 omeprazole 40 mg capsule,delayed 40 mg PO BID 05/04/24 05/04/24 release Previous Rx's Medication Instructions Recorded nitroglycerin 0.4 mg sublingual 0.4 mg sublingual Q5M PRN chest 03/11/20 tablet (Nitrostat) pain #30 tabs fluoxetine 60 mg tablet 60 mg PO QAM #90 tabs 08/01/23 clonazepam 1 mg tablet 1 mg PO BID #60 tabs 11/23/23 prednisone 10 mg tablet See Rx Instructions PO .COMPLEX 12/15/23 PRN joint pain #30 tabs ipratropium 20 mcg-albuterol 100 See Rx Instructions .Route 01/10/24 mcg/actuation mist for inhalation .COMPLEX #4 grams (Combivent Respimat) adalimumab 40 mg/0.8 mL 40 mg (0.8 mL) SUBCUT Q14D #2 ea 02/15/24 subcutaneous pen kit (Humira Pen) folic acid 1 mg tablet 1 mg PO DAILY #90 tabs 02/15/24 methotrexate sodium 2.5 mg tablet See Rx Instructions PO .Q7days #30 02/15/24 tabs prednisone 5 mg tablet 10 mg (2 x 5 mg) PO DAILY #60 tabs 02/15/24 meloxicam 7.5 mg tablet 7.5 mg PO .Twice daily #14 tabs 05/04/24 Allergies Allergy/AdvReac Type Severity Reaction Status Date / Time tramadol Allergy Severe ADR-Seizure Verified 02/15/24 13:46 metoclopramide [From Reglan] Allergy Intermediate ADR-Irritab Verified 02/15/24 13:46 le codeine Allergy Nausea Verified 02/15/24 13:46 propoxyphene [From Darvon] Allergy unknown Verified 02/15/24 13:46 Iovbyde-QLV-VcJ Reductase AdvReac Severe rhabdo Verified 02/15/24 13:46 Inhibitor Review of Systems General: Reports: 10 or more systems reviewed and unremarkable except in HPI and below PFSH ED PFSH: Medical History Seronegative rheumatoid arthritis of both hands Immunization counseling High risk medication use Inflammatory arthritis Endometriosis Hiatal hernia Benzodiazepine misuse Hepatitis B antibody positive Seizures Insomnia Anxiety Claustrophobia Dysthymia Tobacco dependence History of lower leg fracture Dyslipidemia (high LDL; low HDL) Benign essential hypertension with target blood pressure below 140/90 Barretts esophagus Rhabdomyolysis Rheumatoid arthritis IV drug user Surgical History Hx of knee surgery History of exploratory laparotomy removal of endometriosis Hx of section Hx of cholecystectomy Hx of appendectomy Hx of neck surgery Family History Father Bleeding disorder CAD (coronary artery disease) Agent orange exposure Mother Cancer melanoma, breast Grandmother Cancer Maternal-breast, lung, bone, melanoma, brain Grandmother Cancer Paternal--lung Other Chronic kidney disease (CKD) Clotting disorder Diabetes Hyperlipidemia Hypertension Lung disease Psychiatric illness Social History Smoking and tobacco/nicotine status: current every day tobacco/nicotine user cigarettes Packs smoked per day: 1 Years cigarettes smoked: 30 Alcohol intake: current Alcohol intake frequency: holidays/special occasions only Substance/Drug Use: never Physical Exam Const: COMMON NORMALS: no acute distress, average body habitus, patient oriented x3, no limitations, alert and well nourished HENMT: COMMON NORMALS: normocephalic, atraumatic, hearing grossly normal bilaterally, external ears normal, Normal external nose present and moist oral mucous membranes HEAD & SCALP: normocephalic and atraumatic NOSE: Normal external nose present EXTERNAL EAR: Yes external ears normal Neck/C-Spine: COMMON NORMALS: no JVD Chest: COMMONS NORMALS: normal inspection of the chest and normal palpation of entire chest wall Resp: COMMON NORMALS: normal respiratory effort, No retractions, No use of accessory muscles and clear to auscultation bilaterally AUSCULTATION: clear to auscultation bilaterally Cardio: COMMON NORMALS: no JVD, regular rate, regular rhythm, S1 normal heart sound present, S2 normal heart sound present, No gallops present (Cardio), No clicks present (Cardio), No murmurs present (Cardio) and No rub (Cardio) RATE: regular rate RHYTHM: regular rhythm HEART SOUNDS: S1 normal heart sound present and S2 normal heart sound present GI: COMMON NORMALS: Normal to inspection, nondistended, normoactive bowel sounds present, Soft to palpation, non-tender, No hepatosplenomegaly present and no masses PALPATION: Yes Soft to palpation and Yes No hepatosplenomegaly present Extremity: OTHER: Right ankle decreased range of motion secondary to pain. No obvious crepitus deformity, mild swelling, tender to palpate most prominently around the lateral malleolus. Neuro: COMMON NORMALS: patient oriented x3 SENSORIUM/ORIENTATION: Yes alert Course Vital Signs: Vital signs: Vital Signs Temperature 98.6 F 05/04/24 10:46 Pulse Rate 74 05/04/24 11:34 Respiratory Rate 17 05/04/24 10:46 Blood Pressure 127/66 05/04/24 11:34 Pulse Oximetry 95 05/04/24 11:34 Oxygen Delivery Me thod Room Air 05/04/24 11:34 MDM - Extremity (Nontraumatic) Medical Decision Making Patient was given 60 mg Toradol IM, x-ray of ankle was read off as negative, patient be placed in ankle splint and have a prescription for meloxicam. Medical Records I reviewed the patient's medical records. Lab Data I reviewed the patient's lab results. Radiology Impressions Ankle X-Ray 05/04/24 10:33 IMPRESSION: No acute findings. All radiology interpretation(s) finalized by discharge Discharge Plan Discharge Patient Disposition: Home Clinical Impression: Ankle sprain and strain Condition: Stable Prescriptions: New meloxicam 7.5 mg tablet 7.5 mg PO .Twice daily Qty: 14 0RF No Action Narcan 4 mg/actuation spray,non-aerosol 4 mg intranasal Q2M PRN (Reason: (Drug) Ingestion) Rx Instructions: spray 1 dose into ONE nostril; alternate nostrils w each dose until help arrives prednisone 10 mg tablet See Rx Instructions PO .COMPLEX PRN (Reason: joint pain) Qty: 30 1RF Rx Instructions: take 1 or 2 tab daily for up to 7 days prn joint pain flare PO PRN; gabapentin 300 mg capsule 600 mg PO QID folic acid 1 mg tablet 1 mg PO DAILY Qty: 90 3RF methotrexate sodium 2.5 mg tablet See Rx Instructions PO .Q7days Qty: 30 5RF Rx Instructions: take 6 tabs on same day once a week PO .Q7days; Humira Pen 40 mg/0.8 mL pen injector kit 40 mg SUBCUT Q14D Qty: 2 5RF prednisone 5 mg tablet 10 mg PO DAILY Qty: 60 4RF nitroglycerin [Nitrostat] 0.4 mg tablet, sublingual 0.4 mg SUBLINGUAL Q5M PRN (Reason: chest pain) Qty: 30 3RF Rx Instructions: do not exceed 3 doses per episode fluoxetine 60 mg tablet 60 mg PO QAM Qty: 90 0RF clonazepam 1 mg tablet 1 mg PO BID Qty: 60 0RF Combivent Respimat 20-100 mcg/actuation mist See Rx Instructions .ROUTE .COMPLEX Qty: 4 0RF Dose Instruction: INHALE 1 PUFF BY MOUTH 4 TIMES DAILY (SPACE EVENLY DURING WAKING HOURS) Rx Instructions: INHALE 1 PUFF BY MOUTH 4 TIMES DAILY (SPACE EVENLY DURING WAKING HOURS) omeprazole 40 mg capsule,delayed release(DR/EC) 40 mg PO BID ezetimibe 10 mg tablet 10 mg PO DAILY Discharge Orders: Discharge ED (Routine); Ordered 05/04/24 Ordered By: Bhavik Leon Referrals: Samir Mock MD [Primary Care Provider] - 1 week Patient Instructions: Ankle Stirrup Splint (ED), Sprains - Ankle Activity Restrictions/Additional Instructions: Please wear ankle stirrup splint for the next 3 days. A prescription for meloxicam is been sent to your pharmacy please take it as directed. Please follow-up with your primary care doctor within next 7 days for further evaluation and treatment as needed. Coding Level of Care Code ED District Commercial Superintendent for Tone Da Silva
[2024-05-04 12:50] VITALS: BP 123/80; PULSE 72; O2SAT 98
== END 2024-05-04 12:54 | disposition home or self-care (01) ==
PROVIDERS: Emergency Provider Emergency Medicine; PCP Family Medicine
DX: S93.401A Sprain of unspecified ligament of right ankle, initial encounter (principal); X58.XXXA Exposure to other specified factors, initial encounter; F17.210 Nicotine dependence, cigarettes, uncomplicated; E78.5 Hyperlipidemia, unspecified; I10 Essential (primary) hypertension
CPT/HCPCS: 73610; 96372; 99284; E0114; J1885

== ENCOUNTER 2024-09-14 13:02 | Outpatient (CLI) | payer MEDICAID, SELFPAY ==
--- NOTE | 2024-09-14 13:00 | MR_ITS ---
WS: [id number] MRI LUMBAR SPINE WITH AND WITHOUT CONTRAST HISTORY: Low back pain with bilateral sciatica. COMPARISON: None available. TECHNIQUE: Sagittal and axial multisequence imaging is submitted. Close MultiHance 18 mL IV. Prior anterior cervical fusion at C5-6. Several Schmorl's nodes within the thoracic and lumbar vertebral bodies. Normal lumbar alignment with no compression fractures or marrow edema. Disc spaces and vertebral body heights are well-preserved. Conus terminates normally at L1-2 disc level. L1-L2: Mild bilateral facet arthritis. No stenosis. L2-L3: Mild annular disc bulging. Minimal disc contact on the traversing L3 nerve roots. Moderate ligamentum flavum and facet arthritis. No stenosis. L3-L4: Mild annular disc bulging with moderate ligamentum flavum and facet arthritis. Disc contacts the traversing L4 nerve roots. No stenosis. L4-L5: Diffuse annular disc bulging with moderate ligamentum flavum and facet arthritis. Fluid in the facet joints. Disc contacts the traversing L5 nerve roots. Mild central, subarticular recess and foraminal stenosis. There is mild disc contact on the exiting L4 nerve roots. L5-S1: Mild annular disc bulging. Mild disc contact on the S1 nerve roots. No stenosis. No discitis or osteomyelitis. No enhancing masses. MR/MR lumbar spine wo/w con [id number] IMPRESSION: 1. No high-grade central or foraminal stenosis. 2. L4-5: Mild disc bulging with moderate ligamentum flavum and facet arthropat hy. Mild disc contact on the traversing L4 and L5 nerve roots. 3. L4-5: Mild central, subarticular recess and foraminal stenosis. 4. L5-S1: Mild disc contact on the S1 nerve roots. 5. Minimal disc contact on the traversing L3 and L4 nerve roots. 6. Mild to moderate facet joint arthritis throughout the lumbar spine.
[2024-09-14] MEDS: gadobenate dimeglumine 20 mL vial 18 ML IV (13:47)
== END 2024-09-14 13:03 | disposition home or self-care (01) ==
LOC: RAD 13:03
PROVIDERS: PCP Family Medicine; Visit Provider Psychiatry & Neurology Neurology
DX: M51.369 Other intervertebral disc degeneration, lumbar region without mention of lumbar back pain or lower extremity pain (principal); M79.604 Pain in right leg; M24.28 Disorder of ligament, vertebrae; M47.896 Other spondylosis, lumbar region; M48.061 Spinal stenosis, lumbar region without neurogenic claudication; R93.7 Abnormal findings on diagnostic imaging of other parts of musculoskeletal system; Z98.1 Arthrodesis status; M51.44 Schmorl's nodes, thoracic region; M51.46 Schmorl's nodes, lumbar region; M51.379 Other intervertebral disc degeneration, lumbosacral region without mention of lumbar back pain or lower extremity pain
CPT/HCPCS: 72158

== ENCOUNTER → 2024-09-26 16:20 | Outpatient (BNVA) | payer MEDICAID, SELFPAY | PROVIDERS: PCP Family Medicine; Visit Provider Internal Medicine Rheumatology | DX: M06.041 Rheumatoid arthritis without rheumatoid factor, right hand (principal); M06.042 Rheumatoid arthritis without rheumatoid factor, left hand; Z79.899 Other long term (current) drug therapy; Z71.85 Encounter for immunization safety counseling | CPT/HCPCS: 36415; 80076; 82565; 85025; 85651; 86140 ==

== ENCOUNTER → 2024-10-16 15:54 | Outpatient (BNVA) | payer MEDICAID, SELFPAY | PROVIDERS: PCP Family Medicine; Visit Provider Orthopaedic Surgery | DX: M54.2 Cervicalgia (principal); M54.50 Low back pain, unspecified; M54.6 Pain in thoracic spine | CPT/HCPCS: 36415; 72050; 72072; 72110; 80053; 81001; 85025 ==

== ENCOUNTER → 2024-10-31 10:25 | Outpatient (BNVA) | payer MEDICAID, SELFPAY | PROVIDERS: PCP Family Medicine; Visit Provider Family Medicine | DX: Z01.818 Encounter for other preprocedural examination (principal) | CPT/HCPCS: 81003 ==

== ENCOUNTER 2024-11-05 09:41 | Day surgery (SDC) | payer MEDICAID, SELFPAY ==
[2024-11-05] VITALS (14 sets, daily range): BP systolic 91–136; BP diastolic 43–86; PULSE 64–78; RESP 16–20; TEMP 36.2–36.6; O2SAT 93–100; BMI 30.7
--- NOTE | 2024-11-05 09:03 | XR_ITS ---
WS: [id number] XR lumbar spine 1V [id number] REASON FOR EXAM: OR PIC, DECOMPRESSION FINDINGS: Surgical instrument overlies the left L4-L5 disc space. XR/XR lumbar spine 1V [id number] IMPRESSION: Lumbar level localization during surgery as above.
--- NOTE | 2024-11-05 10:31 | W.PM.OPSUD ---
Surgery/Procedure H&P Update DATE OF PROCEDURE: November 05, 2024 DATE H&P PERFORMED: 10/16/24 H&P UPDATE INFORMATION: I have reviewed H&P completed within last 30 days, I have examined patient prior to procedure and No changes to prior documentation PREOP DIAGNOSIS: Lumbar stenosis with neurogenic claudication PLANNED PROCEDURE: Operation Date: 11/05/24 11:10 Proposed Procedures p Lumbar Spine Decompression Lumbar Decompression(Not Applicable) - Jimmy Wing DO
[2024-11-05] MEDS: sodium chloride 0.9% 1,000 ML 30 ML IV (10:37)
--- NOTE | 2024-11-05 10:45 | ANES.PREANE2 ---
Pre-Anesthetic Assessment Height/Weight: Height 5 ft 2 in Weight 168 lb O2 Del Method Room Air 11/05/24 09:59 Preop Diagnosis: Lumbar stenosis with neurogenic claudication Operation Date: 11/05/24 11:10 Proposed Procedures p Lumbar Spine Decompression Lumbar Decompression(Not Applicable) - Jimmy Wing, DO Was Beta Jamari taken within 24 hours: N/A Was Clonidine taken within 24 hours: N/A Last intake: Intake Last Liquid Date 11/04/24 Last Liquid Time 23:30 Last Solid Date 11/04/24 Last Solid Time 23:30 Social Tobacco and No alcohol Exam alert, oriented x 3 and regular rate & rhythm Airway Submandibular: within normal limits Cervical ROM: within normal limits Mallampati: Class III Comments: Comments: Edentulous Anesthetic Plan ASA status: 3 Anesthesia: General Other: No prior issues with anesthesia NPO since yesterday evening History of rheumatoid arthritis on methotrexate Patient has extensive history of opioid abuse, was prior on Suboxone but now takes buprenorphine subcu once a month Prior methamphetamine abuse in remission History of hep C Current smoker Labs reviewed from 10/16/2024 and acceptable for procedure Plan for GETA Medications/Allergies Home Medications ?Medication ?Instructions ?Recorded ?Confirmed ?Last Taken ?Type naloxone 4 mg/actuation nasal 4 mg intranasal Q2M PRN (Drug) 04/17/21 11/02/24 Unknown History spray (Narcan) Ingestion fluoxetine 60 mg tablet 60 mg PO QAM #90 tabs 08/01/23 11/02/24 11/01/24 Rx clonazepam 1 mg tablet 1 mg PO BID #60 tabs 11/23/23 11/02/24 11/01/24 Rx ipratropium 20 mcg-albuterol 100 See Rx Instructions .Route 01/10/24 11/02/24 11/02/24 Rx mcg/actuation mist for inhalation .COMPLEX #4 grams (Combivent Respimat) gabapentin 300 mg capsule 600 mg PO QID 02/15/24 11/02/24 11/02/24 History ezetimibe 10 mg tablet 10 mg PO DAILY 05/04/24 11/02/24 11/01/24 History omeprazole 40 mg capsule,delayed 40 mg PO BID 05/04/24 11/02/24 11/02/24 History release buprenorphine 300 mg/1.5 mL 300 mg SUBCUT Q30D 09/04/24 11/02/24 11/01/24 History solution,exten.rel.subcutaneous syringe (Sublocade) Held on 10/31/24. Instructions: Patient No Longer Taking adalimumab 40 mg/0.8 mL 40 mg (0.8 mL) SUBCUT .Q7days #4 ea 09/26/24 11/02/24 Unknown Rx subcutaneous pen kit (Humira Pen) folic acid 1 mg tablet 1 mg PO DAILY #90 tabs 09/26/24 11/02/24 11/02/24 Rx methotrexate sodium 2.5 mg tablet See Rx Instructions PO .Q7days #90 09/26/24 11/02/24 11/01/24 Rx tabs prednisone 10 mg tablet See Rx Instructions PO .COMPLEX 09/26/24 11/02/24 11/02/24 Rx PRN joint pain #30 tabs prednisone 5 mg tablet 5 mg PO DAILY #90 tabs 09/26/24 11/02/24 Unknown Rx Allergies Allergy/AdvReac Type Severity Reaction Status Date / Time tramadol Allergy Severe ADR-Seizure Verified 11/05/24 09:57 metoclopramide (From Reglan) Allergy Intermediate ADR-Irritab Verified 11/05/24 09:57 le codeine Allergy Nausea Verified 11/05/24 09:57 propoxyphene (From Darvon) Allergy unknown Verified 11/05/24 09:57 [id number]-VPM-[id number] Reductase AdvReac Severe rhabdo Verified 11/05/24 09:57 Inhibitor Current Medications Generic Name Dose Route Start Last Admin Trade Name Freq PRN Reason Stop Dose Admin Sodium Chloride 1,000 mls @ 30 mls/hr 11/05/24 10:15 11/05/24 10:37 Sodium Chloride 0.9% IV 11/06/24 10:14 30 mls/hr .Q24H SUSAN Administration PFSH Anesthesia Medical History Seronegative rheumatoid arthritis of both hands Immunization counseling High risk medication use Inflammatory arthritis Endometriosis Hiatal hernia Benzodiazepine misuse Hepatitis B antibody positive Seizures Insomnia Anxiety Claustrophobia Dysthymia Tobacco dependence History of lower leg fracture Dyslipidemia (high LDL; low HDL) Benign essential hypertension with target blood pressure below 140/90 Barretts esophagus Rhabdomyolysis Rheumatoid arthritis IV drug user Surgical History Hx of knee surgery History of exploratory laparotomy removal of endometriosis Hx of section Hx of cholecystectomy Hx of appendectomy Hx of neck surgery Family History Father Bleeding disorder CAD (coronary artery disease) Agent orange exposure Mother Cancer melanoma, breast Grandmother Cancer Maternal-breast, lung, bone, melanoma, brain Grandmother Cancer Paternal--lung Other Chronic kidney disease (CKD) Clotting disorder Diabetes Hyperlipidemia Hypertension Lung disease Psychiatric illness Social History Smoking and tobacco/nicotine status: current every day tobacco/nicotine user cigarettes Packs smoked per day: 1 Years cigarettes smoked: 30 Alcohol intake: current Alcohol intake frequency: holidays/special occasions only Substance/Drug Use: never
[2024-11-05] MEDS: midazolam 1 mg/mL INJ 2 mL 2 MG IVP (10:46)
[2024-11-05] MEDS: ceFAZolin 2,000 mg SDV 2000 MG IVP (11:04)
[2024-11-05] MEDS: lidocaine-epi 1% 20 mL INJ 10 ML INJECTION (11:35)
--- NOTE | 2024-11-05 12:07 | P.OP_ITS ---
Operative Report Date of procedure: November 05, 2024 Pre-op diagnosis: Lumbar stenosis with neurogenic claudication Post-op diagnosis: same Procedure done: L4-5 laminectomy with partial facetectomy Surgeon: Jimmy Wing DO Estimated blood loss (mL): 15 Procedure: L4-5 laminectomy with partial facetectomy Patient is brought to the operative suite. After undergoing anesthesia they are placed in the prone position. All areas of impingement are well padded. Patient is then prepped and draped in the normal sterile fashion. A skin incision is made over the L4/5 level. This is confirmed under c-arm guidance. A series of dilators are passed and the tubular retractor is docked on the L4 lamina. A bovie is used to clear the soft tissue off the lamina and the L 4/5 facet joint. A high speed brad is then used to perform the laminectomy and take down the medial aspect of the L 4/5 facet joint. A kerrison rongeure was then used to take down the remaining lamina and smooth the edge of the laminectomy up to the point where the ligamentum flavum attaches. Attention was then brought to the medial aspect of the facet joint. The remaining medial aspect of the superior and inferior aspect of the facet joint were taken down with the kerrison from the pedicle of L4 to L 5. The facet j oint had significant hypertrophy. Attention was then brought to the Ligamentum Flavum. The ligament was taken down from the lamina of L4 to L5 and out medially to the remaining facet joint. The ligament was thick. The dura was then exposed. The dura was in good repair. The L4 nerve was then traced with a curette out the L4/5 foramen and found to be adequately decompressed. The L5 nerve was traced with a curette around the L5 pedicle. The lateral recess was opened with a kerrison helping to further decompress the L5 nerve. Wound is then irrigated copiously with saline and surgiflo is used to stop any bleeding. The tubular retractor is removed and the wound is closed with vicryl and monocryl suture. Glue is then used to protect the wound. A sterile dressing is then placed. Patient was then placed in the supine position and transferred to the PACU in stable condition.
[2024-11-05] MEDS: fentaNYL 50 mcg/mL INJ 2mL IVP ×2 (12:09→12:22)
[2024-11-05] MEDS: HYDROcodone-acetaminophen 5-325 mg Tablet 2 TAB PO (12:55)
--- NOTE | 2024-11-05 13:50 | ANE.PACU2 ---
Inpatient post-anesthesia follow up: Airway intact: Yes Vital signs: Temperature 97.8 F Pulse Rate 68 Respiratory Rate 17 Blood Pressure 112/58 Pulse Oximetry 95 Oxygen Delivery Me thod Room Air Oxygen Flow Rate 3 Fraction of Inspir ed Oxygen Hydration adequate: Yes Nausea and vomiting: No Pain level: 1 Mental status: Baseline
== END 2024-11-05 13:50 | disposition home or self-care (01) ==
PROVIDERS: PCP Family Medicine; Visit Provider Orthopaedic Surgery
PROC: (CPT 63005; principal; 2024-11-05 11:00)
DX: M48.062 Spinal stenosis, lumbar region with neurogenic claudication (principal); M06.042 Rheumatoid arthritis without rheumatoid factor, left hand; M06.041 Rheumatoid arthritis without rheumatoid factor, right hand; E78.5 Hyperlipidemia, unspecified; F17.210 Nicotine dependence, cigarettes, uncomplicated; I10 Essential (primary) hypertension; Z79.891 Long term (current) use of opiate analgesic; Z79.899 Other long term (current) drug therapy; Z88.5 Allergy status to narcotic agent
CPT/HCPCS: 63047; 72020; 76000; J0131; J0690; J1100; J2250; J2405; J2704; J3010; J3490; J7030; J9999

== ENCOUNTER 2025-02-05 13:19 | Outpatient (CLI) | payer MEDICAID, SELFPAY ==
[2025-02-05 15:50] LABS: Hematocrit 41.8 % (36-47); Hemoglobin 14.30 g/dL (11.27-16.99); Mean Corpuscular HGB Conc 34.2 g/dL (30-55); Mean Corpuscular Hemoglobin 31.8 pg (27-33); Mean Corpuscular Volume 92.9 fl (85-98); Nucleated Red Blood Cells % 0 %; Platelet Count 137 10^3/cmm (157-399); Red Blood Count 4.50 10^6/uL (3.85-5.65); White Blood Count 6.24 10^3/uL (3.29-11.43)
[2025-02-05 16:35] LABS: Alanine Aminotransferase 24 U/L (0-33); Albumin Level 4.4 g/dL (3.5-5.2); Alkaline Phosphatase 93 U/L (35-105); Aspartate Amino Transferase 35 U/L (0-32); Globulin 3.5 g/dL (1.3-4.6); Total Protein 7.9 g/dL (6.6-8.7)
[2025-02-05 16:41] LABS: Hepatitis B Surface Antigen Non-Reactive (Nonreactive)
[2025-02-07 13:16] LABS: HEP C RNA Viral Load Quant <1.18 NOT DETECTED Log IU/mL (NOT DETECTED); HEP C RNA Viral Load Quant <15 NOT DETECTED IU/mL (NOT DETECTED)
== END 2025-02-05 13:20 | disposition home or self-care (01) ==
LOC: LAB 13:21
PROVIDERS: PCP Family Medicine; Visit Provider Internal Medicine Rheumatology
DX: Z79.899 Other long term (current) drug therapy (principal)
CPT/HCPCS: 36415; 80076; 82306; 82565; 85025; 85651; 86140; 86480; 86704; 86803; 87340; 87522